=== PATIENT | female | born 1975 | race Caucasian/White ===

== ENCOUNTER 2018-01-27 20:06 | Emergency (ER) | payer BC, OTHER ==
[~2018-01-27] VITALS: Ht 180.3 cm; Wt 122.1 kg
[~2018-01-27 20:06] MED LIST: AGM875 PO; LRT5 PO; MULT-506 PO; OXYC-57 PO; PRED20TA PO
[2018-01-27 20:09] VITALS: TEMP 36.5; Ht 180.3 cm; Wt 122.1 kg
[2018-01-27] MEDS ORDERED: SODIUM CHLORIDE 0.9% 1000ML 1,000 ML IV STA (20:29)
[2018-01-27] MEDS ORDERED: ONDANSETRON INJ 2 MG/ML 2 ML VIAL IV STA (20:29)
[2018-01-27] MEDS ORDERED: KETOROLAC TROMETHAMINE 30 MG/ML VIAL IV STA (20:29)
[2018-01-27 20:46] LABS: BASO % 0.5 %; BASO ABS # 0.05 K/uL (0-0.2); EOS % 2.5 %; EOS ABS # 0.25 K/uL (0-0.5); HEMATOCRIT 38.1 % (37-47); HEMOGLOBIN 12.6 g/dL (12.0-16.0); IG# 0.03 K/uL (0.00-0.02); LYMPH % 30.9 %; LYMPH ABS # 3.03 K/uL (1.2-3.4); MEAN CELL VOLUME 83.7 fL (80-100); MEAN CORPUSCULAR HEMOGLOBIN 27.7 pg (25-34); MEAN CORPUSCULAR HGB CONC 33.1 g/dl (32-36); MEAN PLATELET VOLUME 9.4 fL (7.4-10.4); MONO % 7.1 %; NEUT % 58.7 %; NEUT ABS # 5.75 K/uL (1.4-6.5); PLATELET COUNT 396 K/uL (130-400); RED CELL DISTRIBUTION WIDTH CV 13.6 % (11.5-14.5); RED CELL DISTRIBUTION WIDTH SD 41.5 fL (36.4-46.3); WHITE BLOOD COUNT 9.81 K/uL (4.8-10.8)
[2018-01-27 21:11] LABS: ALBUMIN 3.8 gm/dl (3.4-5.0); CALCIUM 8.5 mg/dl (8.5-10.1); CREATININE 0.91 mg/dl (0.60-1.20); POTASSIUM 3.5 mmol/L (3.5-5.1); TOTAL PROTEIN 7.7 gm/dl (6.4-8.2)
--- NOTE | 2018-01-27 22:35 | DIAGNOSTIC IMAGING REPORT ---
GALLBLADDER-ABD LIMITED CLINICAL HISTORY: 42 years-old Female presenting with ruq abd pain . TECHNIQUE: Real-time grayscale and limited color Doppler ultrasound imaging of the abdomen limited to the right upper quadrant was performed. COMPARISON: CT from 06/27/2007. FINDINGS: Pancreas: Visualized portions of the pancreatic head and body normal. Liver: Mildly hyperechogenic parenchyma, although the right hemidiaphragm remains visible, likely indicating mild steatosis. The liver measures 17.2 cm in maximal sagittal dimension. No sonographic evidence of hepatic mass. Main portal vein patent with normal directional flow. Biliary: No intrahepatic biliary ductal dilatation. Common bile duct measures up to 6 mm in diameter. Gallbladder: No evidence of gallstones, gallbladder wall thickening, gallbladder distention, or pericholecystic fluid or inflammatory change. Sonographic Ferguson's sign negative. Right kidney: Normal in appearance without evidence of hydronephrosis. Ascites: None. Other: None. IMPRESSION: 1. No cholelithiasis or biliary ductal dilatation. 2. Hepatic steatosis. Correlate with liver function tests to exclude steatohepatitis as a cause for abdominal pain. Electronically signed by: Fabiano Carmichael M.D. 01/27/2018 10:33 PM Dictated Date/Time: 01/27/2018 10:32 PM
[2018-01-27 23:32] VITALS: BP 125/72; PULSE 55; O2SAT 99
--- NOTE | 2018-01-28 01:05 | EMERGENCY ROOM VISIT NOTE ---
History Report prepared by Deloris: Hali Ring Under the Supervision of: Dr. Willy Bocanegra D.O. First contact with patient: 20:20 Chief Complaint: ABDOMINAL PAIN Stated Complaint: RUQ PAIN History of Present Illness The patient is a 42 year old female who presents to the Emergency Room with complaints of constant right sided pain beginning yesterday evening. She describes the pain as burning and cramping, and notes she has had dull right- sided pain for a short time, but began having much more pain last night after dinner. The patient reports the pain was dull again this morning, and became much worse after eating. She notes both of those meals were high in fat. The patient states her LMP was 2.5 weeks ago. She denies abdominal pain, vaginal pain or discharge, CP, SOB. No cough or runny nose. Source of History: patient Onset: yesterday evening Position: other (R side) Quality: burning, cramping Modifying Factors (Worsening): eating Associated Symptoms: No chest pain, No SOB, No abdominal pain Note: Denies: vaginal pain or discharge Review of Systems See HPI for pertinent positives & negatives. A total of 10 systems reviewed and were otherwise negative. Past Medical & Surgical Medical Problems: (1) Asthma (2) Bronchitis (3) Pneumonia Abdominal pain Family History FHx: cancer FHx: diabetes mellitus FHx: gallbladder disease FHx: heart disease FHx: hypertension FHx: lung disease Social History Smoking Status: Never Smoker Smokeless Tobacco Use: No Alcohol Use: occasionally Marital Status: Housing Status: lives with significant other Occupation Status: employed Current/Historical Medications No Active Prescriptions or Reported Meds Allergies Coded Allergies: Fentanyl (Verified Allergy, Severe, ANAPHYLAXIS, 01/27/18) Aminoglycosides (Verified Allergy, Unknown, Y, 05/01/12) Bacitracin (Verified Allergy, Unknown, 05/01/12) Zuleta Pepper (Verified Allergy, Unknown, ALLERGY TO GREEN PEPPER, 05/01/12) Lidocaine (Verified Allergy, Unknown, Y, 07/29/09) Neomycin (Verified Allergy, Unknown, Y, 07/29/09) Polymyxin B (Verified Allergy, Unknown, Y, 07/29/09) Physical Exam Vital Signs Date Time Temp Pulse Resp B/P (MAP) Pulse Ox O2 Delivery O2 Flow Rate FiO2 01/27/18 23:32 55 16 125/72 99 Room Air 01/27/18 22:20 57 18 114/71 100 Room Air 01/27/18 20:09 36.5 85 18 164/91 99 Room Air Physical Exam GENERAL: Sitting up in bed, alert, well appearing, well nourished, in moderate distress, non-toxic, holding RUQ. EYE EXAM: normal conjunctiva. OROPHARYNX: no exudate, no erythema, lips, buccal mucosa, and tongue normal and mucous membranes are moist NECK: supple, no nuchal rigidity, no adenopathy, non-tender LUNGS: Clear to auscultation. Normal chest wall mechanics HEART: no murmurs, S1 normal and S2 normal ABDOMEN: abdomen soft, normo-active bowel sounds, no masses, no rebound or guarding. Tenderness in RUQ. BACK: Back is symmetrical on inspection and there is no deformity, no midline tenderness, no CVA tenderness. SKIN: no rashes and no bruising UPPER EXTREMITIES: upper extremities are grossly normal. LOWER EXTREMITIES: No pitting edema. NEURO EXAM: Normal sensorium, cranial nerves II-XII grossly intact, normal speech, no gross weakness of arms, no gross weakness of legs. Medical Decision & Procedures ER Provider Diagnostic Interpretation: Radiology results as stated below per my review and the radiologist's interpretation: GALLBLADDER-ABD LIMITED CLINICAL HISTORY: 42 years-old Female presenting with ruq abd pain . TECHNIQUE: Real-time grayscale and limited color Doppler ultrasound imaging of the abdomen limited to the right upper quadrant was performed. COMPARISON: CT from 06/27/2007. FINDINGS: Pancreas: Visualized portions of the pancreatic head and body normal. Liver: Mildly hyperechogenic parenchyma, although the right hemidiaphragm remains visible, likely indicating mild steatosis. The liver measures 17.2 cm in maximal sagittal dimension. No sonographic evidence of hepatic mass. Main portal vein patent with normal directional flow. Biliary: No intrahepatic biliary ductal dilatation. Common bile duct measures up to 6 mm in diameter. Gallbladder: No evidence of gallstones, gallbladder wall thickening, gallbladder distention, or pericholecystic fluid or inflammatory change. Sonographic Ferguson's sign negative. Right kidney: Normal in appearance without evidence of hydronephrosis. Ascites: None. Other: None. IMPRESSION: 1. No cholelithiasis or biliary ductal dilatation. 2. Hepatic steatosis. Correlate with liver function tests to exclude steatohepatitis as a cause for abdominal pain. Electronically signed by: Fabiano Carmichael M.D. 01/27/2018 10:33 PM Dictated Date/Time: 01/27/2018 10:32 PM Laboratory Results 01/27/18 20:35 Red Blood Count 4.55, Mean Corpuscular Volume 83.7, Mean Corpuscular Hemoglobin 27.7, Mean Corpuscular Hemoglobin Concent 33.1, Mean Platelet Volume 9.4, Neutrophils (%) (Auto) 58.7, Lymphocytes (%) (Auto) 30.9, Monocytes (%) (Auto) 7.1, Eosinophils (%) (Auto) 2.5, Basophils (%) (Auto) 0.5, Neutrophils # (Auto) 5.75, Lymphocytes # (Auto) 3.03, Monocytes # (Auto) 0.70, Eosinophils # (Auto) 0.25, Basophils # (Auto) 0.05 01/27/18 20:35 Test 01/27/18 20:35 01/27/18 21:00 White Blood Count 9.81 K/uL (4.8-10.8) Red Blood Count 4.55 M/uL (4.2-5.4) Hemoglobin 12.6 g/dL (12.0-16.0) Hematocrit 38.1 % (37-47) Mean Corpuscular Volume 83.7 fL (80-100) Mean Corpuscular Hemoglobin 27.7 pg (25-34) Mean Corpuscular Hemoglobin Concent 33.1 g/dl (32-36) Platelet Count 396 K/uL (130-400) Mean Platelet Volume 9.4 fL (7.4-10.4) Neutrophils (%) (Auto) 58.7 % Lymphocytes (%) (Auto) 30.9 % Monocytes (%) (Auto) 7.1 % Eosinophils (%) (Auto) 2.5 % Basophils (%) (Auto) 0.5 % Neutrophils # (Auto) 5.75 K/uL (1.4-6.5) Lymphocytes # (Auto) 3.03 K/uL (1.2-3.4) Monocytes # (Auto) 0.70 K/uL (0.11-0.59) Eosinophils # (Auto) 0.25 K/uL (0-0.5) Basophils # (Auto) 0.05 K/uL (0-0.2) RDW Standard Deviation 41.5 fL (36.4-46.3) RDW Coefficient of Variation 13.6 % (11.5-14.5) Immature Granulocyte % (Auto) 0.3 % Immature Granulocyte # (Auto) 0.03 K/uL (0.00-0.02) Anion Gap 8.0 mmol/L (3-11) Est Creatinine Clear Calc Drug Dose 113.7 ml/min Estimated GFR () 88.9 Estimated GFR (Non- 76.7 BUN/Creatinine Ratio 12.8 (10-20) Calcium Level 8.5 mg/dl (8.5-10.1) Total Bilirubin 0.7 mg/dl (0.2-1) Direct Bilirubin 0.2 mg/dl (0-0.2) Aspartate Amino Transf (AST/SGOT) 23 U/L (15-37) Alanine Aminotransferase (ALT/SGPT) 35 U/L (12-78) Alkaline Phosphatase 89 U/L (45-117) Total Protein 7.7 gm/dl (6.4-8.2) Albumin 3.8 gm/dl (3.4-5.0) Lipase 116 U/L (73-393) Urine Color DK YELLOW Urine Appearance CLOUDY (CLEAR) Urine pH 5.0 (4.5-7.5) Urine Specific Berry 1.031 (1.000-1.030) Urine Protein NEG (NEG) Urine Glucose (UA) NEG (NEG) Urine Ketones TRACE (NEG) Urine Occult Blood NEG (NEG) Urine Nitrite NEG (NEG) Urine Bilirubin NEG (NEG) Urine Urobilinogen NEG (NEG) Urine Leukocyte Esterase TRACE (NEG) Urine WBC (Auto) 5-10 /hpf (0-5) Urine RBC (Auto) 10-30 /hpf (0-4) Urine Hyaline Casts (Auto) 1-5 /lpf (0-5) Urine Epithelial Cells (Auto) >30 /lpf (0-5) Urine Bacteria (Auto) NEG (NEG) Urine Test NEG (NEG) Laboratory results per my review. Medications Administered Medications (Trade) Dose Ordered Sig/Maria Elena Route Start Time Stop Time Status Last Admin Dose Admin Sodium Chloride 1,000 ml @ 999 mls/hr Q1H1M STAT IV 01/27/18 20:29 01/27/18 21:29 DC 8/6/18 21:49 999 MLS/HR ED Course ED COURSE: Vital signs were reviewed and showed situational hypertension. The patients medical record was reviewed The above diagnostic studies were performed and reviewed. ED treatments and interventions as stated above. 2020: The patient was evaluated in room B12B. A complete history and physical examination was performed. 2028: Ordered Toradol Inj 30 mg IV, Zofran 4 mg IV, Sodium Chloride 1000 ml @ 999 mls/hr IV 1: Upon reevaluation, the patient is resting. I discussed my findings with the patient and she understands and agrees with the treatment plan. Based on the patients age, coexisting illnesses, exam and lab findings the decision to treat as an outpatient was made. The patient remained stable while under my care. The patient appeared well at the time of discharge. Medical Decision Differential diagnoses includes but is not limited to gastritis, peptic ulcer disease, GERD, gallbladder disease, pancreatitis, small bowel obstruction, acute coronary syndrome, pericarditis, ischemic bowel, irritable bowel disease, irritable bowel syndrome, appendicitis, diverticulitis, malignancy, hernia, urinary tract infection, torsion, /ectopic , perforation, trauma, infectious. Patient is a 42-year-old female who presents to ER for right upper quadrant pain is worse after eating in the past 2 days. She is especially worse after fatty foods. Labs were obtained and CBC along with BMP, LFTs, bilirubin lipase is unremarkable. UA was contaminated. was negative. Ultrasound right upper quadrant showed no cholelithiasis. Patient was given fluids but declined pain medications. She was monitored closely. Her exam was fairly unremarkable. She was updated and discharged to follow-up with PCP as an outpatient. She had no chest pain or shortness of breath. Nothing to suggest that this was pulmonary or cardiac in origin. Discussed with Pt concerning signs and symptoms to watch out for. Pt was instructed to follow up with their PCP and discussed with the patient their option to return to the ED at anytime for persistent or worsening symptoms. The appropriate anticipatory guidance and out-patient management, including indications for return to the emergency department, were explained at length to the patient and understood. Medication Reconcilliation Current Medication List: was personally reviewed by me Blood Pressure Screening Patient's blood pressure: Elevated blood pressure Blood pressure disposition: Elevated BP felt to be situational Impression Primary Impression: Abdominal pain Scribe Attestation The scribe's documentation has been prepared under my direction and personally reviewed by me in its entirety. I confirm that the note above accurately reflects all work, treatment, procedures, and medical decision making performed by me. Departure Information Dispostion Home / Self-Care Prescriptions No Active Prescriptions or Reported Meds Referrals No Doctor, Assigned (PCP) Forms Call Back Authorization, HOME CARE DOCUMENTATION FORM, IMPORTANT VISIT INFORMATION Patient Instructions My [facility] Additional Instructions Please follow up with your primary care doctor with in the next 24 hours. Any worsening of your symptoms, please return to the ED immediately. This includes any fevers greater than 100.4, worsening pain, chest pain, shortness breath, persistent nausea, vomiting, unable to eat or drink, or any other concerning signs or symptoms from your standpoint. Please take Tylenol or Motrin as needed for pain. Please try to stay away from fatty foods. Problem Qualifiers Primary Impression: Abdominal pain Abdominal location: right upper quadrant Qualified Codes: R10.11 - Right upper quadrant pain
== END 2018-01-27 23:38 | disposition home or self-care (01) ==
LOC: C.EDB 20:07
DX: R10.11 Right upper quadrant pain (principal); J45.909 Unspecified asthma, uncomplicated; Z87.01 Personal history of pneumonia (recurrent); Z80.9 Family history of malignant neoplasm, unspecified; Z83.3 Family history of diabetes mellitus; Z83.79 Family history of other diseases of the digestive system; Z83.6 Family history of other diseases of the respiratory system; Z82.49 Family history of ischemic heart disease and other diseases of the circulatory system; Z88.8 Allergy status to other drugs, medicaments and biological substances; Z91.018 Allergy to other foods

== ENCOUNTER 2020-11-29 10:22 | Inpatient (IN) ==
[2020-11-29] MEDS ORDERED: ONDANSETRON INJ 2 MG/ML 2 ML VIAL IV STA (10:34)
[2020-11-29] MEDS ORDERED: KETOROLAC TROMETHAMINE 15 MG/ML VIAL IV STA (10:34)
[2020-11-29] MEDS ORDERED: SODIUM CHLORIDE 0.9% 1000ML 1,000 ML IV ONE (10:34)
--- NOTE | 2020-11-29 11:08 | Emergency Department Note ---
History of Present Illness General Chief Complaint: Abdominal Pain Stated Complaint: UPPER ABD PAIN RADIATING TO RIGHT AND INTO SHOULDE Time Seen by Provider: 11/29/20 10:34 History of Present Illness Provider Complaint: abdominal pain Onset (ago): 2 hour(s) Pain Consistency: constant Location: RUQ Radiation: back Severity: moderate Maximum Pain Intensity: 8 Current Pain Intensity: 8 Quality: + stabbing Relieved By: + nothing Exacerbated By: + nothing Context: + history of similar episodes (history of gallstones) Associated Symptoms: + nausea, + vomiting and + back pain; no diarrhea, no fev er, no constipation, no dysuria, no hematemesis, no hematochezia, no melena, no hematuria, no headache, no neck pain, no chest pain and no breathing difficulty Patient states she was recently in [place] and diagnosed with gallstones. She states she saw her PCP yesterday Dr. Trujillo at [facility]. She states she has an appointment with general surgery Dr. Barba on . Related Data Patient Confirmed : No Home Medications Medication Instructions Recorded Confirmed Type fluocinonide 0.05 ml TOPICAL DAILY PRN 11/29/20 11/29/20 History Allergies Allergy/AdvReac Type Severity Reaction Status Date / Time fentanyl Allergy Severe ANAPHYLAXIS Verified 11/29/20 13:32 Aminoglycosides Allergy Unknown Y Verified 11/29/20 13:32 bacitracin Allergy Unknown Verified 11/29/20 13:32 lidocaine Allergy Unknown Y Verified 11/29/20 13:32 neomycin Allergy Unknown Y Verified 11/29/20 13:32 polymyxin B Allergy Unknown Y Verified 11/29/20 13:32 Zuleta Pepper Allergy Unknown ALLERGY TO Uncoded 11/29/20 13:32 GREEN PEPPER Past Med/Surg History Medical History Gallstones History of hysteroscopy Psoriasis Surgical History History of breast biopsy History of colonoscopy History of discectomy microdiscectomy l3-l5 History of sinus surgery Family History Mother Cholecystitis, Onset Age: 37 Breast cancer Father Prostate cancer Pancreatitis Social History Smoking Status: Never smoker Second Hand Exposure: No; Hx Alcohol Use: Yes Alcohol type: wine and hard liquor Hx Substance Use: No Preferred Language: Albanian Communication Ability: Effective Fabrication Welder Required: No Beliefs That Will Affect Care: None marital status: Current Living Situation: Spouse current occupational status: employed Feels Safe at Home: Yes Assistive Devices: Contacts and Glasses Review of Systems A total of 10 systems reviewed and were otherwise negative Physical Exam Vital Signs: Vital Signs - 24 hr 11/29/20 10:28 11/29/20 11:23 11/29/20 12:20 Temperature 36.6 C Temperature Source Temporal Artery Sc an Pulse Rate 72 58 L Pulse Rate [Right Finger] 64 53 L Pulse Rate from Sp O2 Sensor 58 L Pulse Rhythm [Righ t Finger] Regular Regular Pulse Strength [Ri ght Finger] Normal Normal Respiratory Rate 18 16 15 Respiratory Effort / Characteristics Non-Labored Sponta neous Non-Labored Sponta neous Respiratory Depth Normal Normal Respiratory Patter n Regular Regular Blood Pressure 175/80 H 109/72 Blood Pressure [Ri ght Arm] 142/87 H 109/72 Blood Pressure Vibha n 111 84 Blood Pressure Vibha n [Right Arm] 105 84 Blood Pressure Pos ition [Right Arm] Lying Lying Pulse Oximetry 100 99 96 Oxygen Delivery Me thod Room Air Room Air Room Air Sepsis Recent Feve r Within 48 Hours No Sepsis New/Unexpla ined Change in Men ana Status N/A Sepsis Action Take n by Nursing No Action Required Physical Exam: Physical Exam GENERAL: She is oriented to person, place, and time. She appears well-developed and well-nourished. She does not appear distressed. HENT: Exam performed. -Head: Normocephalic and atraumatic. -Right Ear: External ear normal. No mastoid tenderness. -Left Ear: External ear normal. No mastoid tenderness. -Mouth/Throat: The oropharynx is clear and moist. No trismus in the jaw. No dental abscesses or uvula swelling. No oropharyngeal exudate or tonsillar abscesses. EYES: Conjunctivae and EOM are normal. Pupils are equal, round, and reactive to light. Right eye exhibits no discharge. Left eye exhibits no discharge. No scleral icterus. NECK: Normal range of motion. Neck supple. No JVD present. No spinous process tenderness present. No carotid bruit present. No rigidity. No tracheal deviation and normal range of motion present. No Brudzinski's sign and no Kernig's sign noted. CV: Normal rate, regular rhythm, normal heart sounds and intact distal pulses. There is no peripheral edema. Palpable radial pulses bue. PULM/CHEST: Effort normal and breath sounds normal. No respiratory distress. No stridor. She has no wheezes. She has no rales. -Chest Wall: She exhibits no tenderness. ABD: The abdomen is soft. Bowel sounds are normal. She has no distension. No mass is present. There is tenderness to palpation of the right upper quadrant. There is no rebound, no guarding, and no tenderness at McBurney's point. Rovsig negative MUSC/SKEL: Normal range of motion. There is no peripheral edema, tenderness or deformity. LYMPH: No cervical adenopathy. NEURO: She is alert and oriented to person, place, and time. She has normal strength. No cranial nerve deficit or sensory deficit. Coordination and gait normal. GCS eye subscore is 4. GCS verbal subscore is 5. GCS motor subscore is 6. Cerebellar tests wnl. SKIN: Skin is warm and dry. She is not diaphoretic. PSYCH: She has a normal mood and affect. Behavior is normal. Judgment and thought content normal. Course Course 1034: The patient was evaluated in room B7. A complete history and physical exam was performed Cardiac monitoring: An order was placed for continuous cardiac monitoring. The monitor shows a rate of 70 with sinus rhythm Administered Medications Lactated Ringer's (Lr) 1,000 mls @ 125 mls/hr IV .Q8H BERTRAND Stop: 12/29/20 15:54 Last Admin: 11/29/20 16:49 Dose: 125 mls/hr Documented by: [id number] Discontinued Medications Hydromorphone HCl (Hydromorphone Inj 1 Mg/Ml Syringe) 1 mg IV NOW STA Stop: 11/29/20 11:17 Last Admin: 11/29/20 11:20 Dose: 1 mg Documented by: [id number] Sodium Chloride (Nss 1000ml) 1,000 mls @ 999 mls/hr IV .Q1H1M ONE Stop: 11/29/20 11:34 Last Infusion: 11/29/20 12:22 Dose: 0 mls/hr Documented by: [id number] Admin: 11/29/20 11:07 Dose: 999 mls/hr Documented by: [id number] Ketorolac Tromethamine (Ketorolac Tromethamine 15 Mg/Ml Vial) 15 mg IV NOW STA Stop: 11/29/20 10:35 Last Admin: 11/29/20 11:09 Dose: 15 mg Documented by: [id number] Ondansetron HCl (Ondansetron Inj 2 Mg/Ml 2 Ml Vial) 4 mg IV NOW STA Stop: 11/29/20 10:35 Last Admin: 11/29/20 11:09 Dose: 4 mg Documented by: [id number] Ondansetron HCl (Ondansetron Inj 2 Mg/Ml 2 Ml Vial) Confirm Administered Dose 4 mg .ROUTE .STK-MED ONE Stop: 11/29/20 13:09 Last Admin: 11/29/20 13:12 Dose: 4 mg Documented by: [id number] Medical Decision Making Laboratory Data Result diagrams: 11/29/20 11:02 11/29/20 11:02 Lab Results 11/29/20 11/29/20 11/29/20 Range/Units 11:02 11:02 11:02 WBC 12.41 H (4.8-10.8) K/uL RBC 4.48 (4.2-5.4) M/uL Hgb 13.1 (12.0-16.0) g/dL Hct 38.2 (37-47) % MCV 85.3 (80-100) fL MCH 29.2 (25-34) pg MCHC 34.3 (32-36) g/dL RDW Std Deviation 42.6 (36.4-46.3) fL RDW Coeff of Onur 13.7 (11.5-14.5) % Plt Count 375 (130-400) K/uL MPV 10.1 (7.4-10.4) fL Immature Gran % (Auto) 0.2 % Neut % (Auto) 82.2 % Lymph % (Auto) 10.5 % [place] % (Auto) 6.3 % Eos % (Auto) 0.6 % Baso % (Auto) 0.2 % Neut # (Auto) 10.21 H (1.4-6.5) K/uL Lymph # (Auto) 1.30 (1.2-3.4) K/uL [place] # (Auto) 0.78 H (0.11-0.59) K/uL Eos # (Auto) 0.07 (0-0.5) K/uL Baso # (Auto) 0.03 (0-0.2) K/uL Immature Gran # (Auto) 0.02 (0.00-0.02) K/uL Sodium 139 (136-145) mmol/L Potassium 4.2 (3.5-5.1) mmol/L Chloride 111 H (98-107) mmol/L Carbon Dioxide 22 (21-32) mmol/L Anion Gap 6.0 (3-11) BUN 13 (7-18) mg/dl Creatinine 0.80 (0.6-1.2) mg/dl Est Cr Clr Drug Dosing 117.4 ml/min Est GFR ( Amer) 102.5 ml/min Est GFR (Non-Af Amer) 88.4 ml/min BUN/Creatinine Ratio 15.7 (10-20) Glucose 86 (70-99) mg/dl Calcium 8.7 (8.5-10.1) mg/dl Total Bilirubin 1.4 H (0.2-1) mg/dl Direct Bilirubin 0.4 H (0-0.2) mg/dl AST 46 H (15-37) U/L ALT 51 (12-78) U/L Alkaline Phosphatase 86 (45-117) U/L Total Protein 7.4 (6.4-8.2) gm/dl Albumin 3.7 (3.4-5.0) gm/dl Lipase 158 (73-393) U/L Urine Color Dark Yellow Urine Appearance Cloudy A (Clear) Urine pH 5.5 (4.5-7.5) Ur Specific [place] 1.025 (1.000-1.030) Urine Protein Negative (Negative) Urine Glucose (UA) Negative (Negative) Urine Ketones Trace H (Negative) Urine Blood Negative (Negative) Urine Nitrite Negative (Negative) Urine Bilirubin Negative (Negative) Urine Urobilinogen Negative (Negative) Ur Leukocyte Esterase 1+ H (Negative) Urine WBC (Auto) 1-5 (0-5) /hpf Urine RBC (Auto) 5-10 H (0-4) /hpf U Hyaline Cast (Auto) 5-10 H (0-5) /lpf U Epithel Cells (Auto) >30 H (0-5) /lpf Urine Bacteria (Auto) Negative (Negative) POC Ur Test (NEG) 11/29/20 Range/Units 11:02 WBC (4.8-10.8) K/uL RBC (4.2-5.4) M/uL Hgb (12.0-16.0) g/dL Hct (37-47) % MCV (80-100) fL MCH (25-34) pg MCHC (32-36) g/dL RDW Std Deviation (36.4-46.3) fL RDW Coeff of Onur (11.5-14.5) % Plt Count (130-400) K/uL MPV (7.4-10.4) fL Immature Gran % (Auto) % Neut % (Auto) % Lymph % (Auto) % [place] % (Auto) % Eos % (Auto) % Baso % (Auto) % Neut # (Auto) (1.4-6.5) K/uL Lymph # (Auto) (1.2-3.4) K/uL [place] # (Auto) (0.11-0.59) K/uL Eos # (Auto) (0-0.5) K/uL Baso # (Auto) (0-0.2) K/uL Immature Gran # (Auto) (0.00-0.02) K/uL Sodium (136-145) mmol/L Potassium (3.5-5.1) mmol/L Chloride (98-107) mmol/L Carbon Dioxide (21-32) mmol/L Anion Gap (3-11) BUN (7-18) mg/dl Creatinine (0.6-1.2) mg/dl Est Cr Clr Drug Dosing ml/min Est GFR ( Amer) ml/min Est GFR (Non-Af Amer) ml/min BUN/Creatinine Ratio (10-20) Glucose (70-99) mg/dl Calcium (8.5-10.1) mg/dl Total Bilirubin (0.2-1) mg/dl Direct Bilirubin (0-0.2) mg/dl AST (15-37) U/L ALT (12-78) U/L Alkaline Phosphatase (45-117) U/L Total Protein (6.4-8.2) gm/dl Albumin (3.4-5.0) gm/dl Lipase (73-393) U/L Urine Color Urine Appearance (Clear) Urine pH (4.5-7.5) Ur Specific [place] (1.000-1.030) Urine Protein (Negative) Urine Glucose (UA) (Negative) Urine Ketones (Negative) Urine Blood (Negative) Urine Nitrite (Negative) Urine Bilirubin (Negative) Urine Urobilinogen (Negative) Ur Leukocyte Esterase (Negative) Urine WBC (Auto) (0-5) /hpf Urine RBC (Auto) (0-4) /hpf U Hyaline Cast (Auto) (0-5) /lpf U Epithel Cells (Auto) (0-5) /lpf Urine Bacteria (Auto) (Negative) POC Ur Test NEG (NEG) Imaging Data Radiologist's Impression: Chest/Abdomen X-ray 11/29/20 10:35 XR abdomen 2V w PA chest HISTORY: 44 years-old Female epigastric pain . Epigastric abdominal pain with nausea COMPARISON: Right upper quadrant abdominal ultrasound of same day TECHNIQUE: PA view of the chest with erect and supine views of the abdomen FINDINGS: Cardiac mediastinal and hilar silhouettes are within normal limits. No pneumothorax, pleural effusion, airspace consolidation or overt pulmonary edema. Bones of the chest appear grossly intact. No pneumatosis or pneumoperitoneum. Bowel gas pattern is nonobstructive. No urolith or acute fracture. IMPRESSION: Unremarkable acute abdominal series radiographs. ACT 112: Negative or not required by law. The above report was generated using voice recognition software. It may contain grammatical, syntax or spelling errors. Electronically signed by: Valdez Rebollar M.D. 11/29/2020 1:04 PM Gallbladder Ultrasound 11/29/20 10:35 US gallbladder HISTORY: 44 years-old Female carlos acute right upper quadrant abdominal pain COMPARISON: Right upper quadrant abdominal ultrasound 01/27/2018 TECHNIQUE: Multiple real-time sonographic images of the abdominal right upper quadrant were obtained assessing grayscale appearance and color flow FINDINGS: The visualized pancreas appears unremarkable. Common bile duct is dilated measuring up to 1.2 cm. Slightly echogenic morphology of the liver. Mild distention of the gallbladder with shadowing cholelithiasis. No definite gallbladder wall thickening or pericholecystic fluid. Sonographic Ferguson sign reported as positive. Imaged right kidney is unremarkable without hydronephrosis. IMPRESSION: 1. Mild gallbladder distention with cholelithiasis. The sonographic Ferguson sign was reported as positive, however no gallbladder wall thickening or pericholecystic fluid identified to suggest acute cholecystitis. 2. Dilation of the common bile duct. Correlate with serum bilirubin to exclude obstructive etiology. ACT 112: Negative or not required by law. The above report was generated using voice recognition software. It may contain grammatical, syntax or spelling errors. Electronically signed by: Valdez Rebollar M.D. 11/29/2020 12:03 PM ECG Data Indication: abdominal pain Rate (beats per minute): 46 Rhythm: normal sinus Findings: + 1st degree AV block; no ST depression, no ST elevation and no prolonged QT MDM Narrative Vital signs stable. Patient's pain is controlled with multiple rounds of analgesia. Labs show leukocytosis of 12.4.Total bilirubin 1.4 direct bilirubin 0.4 AST 46 ALT 51. Ultrasound does show gallstones with a positive sonographic Ferguson sign. Given the patient's elevated bilirubin level as well as her sonographic Ferguson sign, the patient be admitted to the [facility] team. I did discuss case with Abby knight PA-C for Dr. Mckeon who requests that Dr. Mancia on-call general surgery be paged and notified of the patient. Dr. Mancia is in the OR but was made aware of the patient. Impression & Plan Gallstones Discharge Plan Visit Data Chief Complaint: Abdominal Pain Stated Complaint: UPPER ABD PAIN RADIATING TO RIGHT AND INTO SHOULDE ED Provider: Reinaldo Weber Discharge Problem: Gallstones Patient Disposition: Admitted As Inpatient Discharge Instructions Interventions: ED Discharge Assessment Last Done: 11/29/20 16:08
[2020-11-29 11:15] LABS: Basophils # (auto) 0.03 K/uL (0-0.2); Basophils % (auto) 0.2 %; Eosinophils # (auto) 0.07 K/uL (0-0.5); Eosinophils % (auto) 0.6 %; Hematocrit (blood only) 38.2 % (37-47); Hemoglobin 13.1 g/dL (12.0-16.0); Immature Granulocytes # (auto) 0.02 K/uL (0.00-0.02); Immature Granulocytes % (auto) 0.2 %; Lymphocytes % (auto) 10.5 %; Mean Corpuscular Hemoglobin 29.2 pg (25-34); Mean Corpuscular Hgb Conc 34.3 g/dL (32-36); Mean Corpuscular Volume 85.3 fL (80-100); Mean Platelet Volume 10.1 fL (7.4-10.4); Monocytes # (auto) 0.78 K/uL (0.11-0.59); Monocytes % (auto) 6.3 %; Neutrophils # (auto) 10.21 K/uL (1.4-6.5); Neutrophils % (auto) 82.2 %; Platelet Count 375 K/uL (130-400); RDW Coefficient of Variation 13.7 % (11.5-14.5); RDW Standard Deviation 42.6 fL (36.4-46.3); Red Blood Count 4.48 M/uL (4.2-5.4); White Blood Count 12.41 K/uL (4.8-10.8)
[2020-11-29] MEDS ORDERED: HYDROmorphone INJ 1 MG/ML SYRINGE IV STA (11:16)
[2020-11-29 11:20] LABS: Appearance Urine Cloudy (Clear); Bacteria Urine Automated Negative (Negative); Bilirubin Urine Negative (Negative); Blood Urine Negative (Negative); Color Urine Dark Yellow; Epithelial Cell Urine Auto >30 /lpf (0-5); Glucose Urine UA Negative (Negative); Ketones Urine Trace (Negative); Leukocyte Esterase Urine 1+ (Negative); Nitrite Urine Negative (Negative); Protein Urine Negative (Negative); Specific Gravity Urine 1.025 (1.000-1.030); Urobilinogen Urine Negative (Negative); pH Urine 5.5 (4.5-7.5)
[2020-11-29 11:37] LABS: Albumin Level 3.7 gm/dl (3.4-5.0); BUN Creatinine Ratio 15.7 (10-20); Bilirubin Direct 0.4 mg/dl (0-0.2); Calcium 8.7 mg/dl (8.5-10.1); Creatinine Clr Calc Pharmacy 117.4 ml/min; Est GFR (African American) 102.5 ml/min; Est GFR (Non-African American) 88.4 ml/min; Potassium 4.2 mmol/L (3.5-5.1)
[2020-11-29 11:40] LABS: Bilirubin,Total 1.4 mg/dl (0.2-1); Total Protein 7.4 gm/dl (6.4-8.2)
--- NOTE | 2020-11-29 12:05 | Ultrasound Report ---
US gallbladder HISTORY: 44 years-old Female carlos acute right upper quadrant abdominal pain COMPARISON: Right upper quadrant abdominal ultrasound 01/27/2018 TECHNIQUE: Multiple real-time sonographic images of the abdominal right upper quadrant were obtained assessing grayscale appearance and color flow FINDINGS: The visualized pancreas appears unremarkable. Common bile duct is dilated measuring up to 1.2 cm. Sli ghtly echogenic morphology of the liver. Mild distention of the gallbladder with shadowing cholelithi asis. No definite gallbladder wall thickening or pericholecystic fluid. Sonographic Ferguson sign repor joe as positive. Imaged right kidney is unremarkable without hydronephrosis. IMPRESSION: 1. Mild gallbladder distention with cholelithiasis. The sonographic Ferguson sign was reported as posit emily, however no gallbladder wall thickening or pericholecystic fluid identified to suggest acute chol ecystitis. 2. Dilation of the common bile duct. Correlate with serum bilirubin to exclude obstructive etiology. ACT 112: Negative or not required by law. The above report was generated using voice recognition software. It may contain grammatical, syntax o r spelling errors. Electronically signed by: Valdez Rebollar M.D. 11/29/2020 12:03 PM
--- NOTE | 2020-11-29 13:05 | XRay Report ---
XR abdomen 2V w PA chest HISTORY: 44 years-old Female epigastric pain . Epigastric abdominal pain with nausea COMPARISON: Right upper quadrant abdominal ultrasound of same day TECHNIQUE: PA view of the chest with erect and supine views of the abdomen FINDINGS: Cardiac mediastinal and hilar silhouettes are within normal limits. No pneumothorax, pleural effusion , airspace consolidation or overt pulmonary edema. Bones of the chest appear grossly intact. No pneumatosis or pneumoperitoneum. Bowel gas pattern is nonobstructive. No urolith or acute fracture . IMPRESSION: Unremarkable acute abdominal series radiographs. ACT 112: Negative or not required by law. The above report was generated using voice recognition software. It may contain grammatical, syntax o r spelling errors. Electronically signed by: Valdez Rebollar M.D. 11/29/2020 1:04 PM
[2020-11-29] MEDS ORDERED: ONDANSETRON INJ 2 MG/ML 2 ML VIAL ONE (13:08)
--- NOTE | 2020-11-29 13:35 | History & Physical Report ---
Date of Service November 29, 2020 Assessment & Plan (1) Cholelithiasis: (2) Biliary colic: (3) Leukocytosis: LFTS: Ast 46, ALT 51, Alp Phos 86, T bili 1.4, direct 0.4 admit to med/surg consult general surgery and GI low fat diet, NPO after midnight CXR reviewed, obtain ecg pt without significant pmh, risk factors IVF LR @ 125/hr IV toradol 15mg q6h moderate pain; IV morphine 4mg q6h to be used for severe pain only no indication for antibiotic at this time due to no evidence of cholecystitis repeat CMP, CBC in a.m. Dispo: med surg PCP: Ronnie Full Code DVT ppx: SCD/TEDS for now due to possibility of requiring cholecystectomy Pt was seen and examined in collaboration with Dr. Mckeon, please see addendum History of Present Illness Chief Complaint: Abdominal pain starting @ 8:33a.m. Primary Care Provider: Ladarius Trujillo, DO This is a 44-year-old female with past medical history of psoriasis but otherwise healthy who presents ED secondary to abdominal pain 8:33 a.m. She has had 7 episodes of similar pain in the last 3 months and 4 of which have been in the past month. Her last meal was last evening and she ate tofu marsala. Pain came on abruptly, located RUQ with radiation to R shoulder. When pain comes on it is intense, sharp, 10/10 and resolves on own. Nothing makes the pain better or worse except the IV diluadid in ED. She was recently in [place] from early October until last week and was seen in ED there and told she had gallstones. She saw PCP yesterday who referred her to general surgery. When pain came on abruptly today she presented right to ED. Her mother has hx of cholecystectomy at age 37. She has been trying to maintain a low fat diet. She has otherwise been well and fully vaccinated against covid-19. She denies f/c/s, dizziness, lightheaded, chest pain, sob, uri sx, emesis, diarrhea, constipation, dysuria, increased urg/freq with urination. Appetite has been decreased 2/2 to fear of abdominal pain returning. In ED pt remained hemodynamically stable. She did not meet SIRS/Sepsis criteria. RUQ U/S had a sonographically + murphys sign but no evidence of acute cystitis. Her CBD was noted to be dilated. She has mild gallbladder distention with cholelithiasis. She received IV toradol, dilaudid, zofran and IVF. She is currently feeling better in ED. Allergies Allergy/AdvReac Type Severity Reaction Status Date / Time fentanyl Allergy Severe ANAPHYLAXIS Verified 11/29/20 13:32 Aminoglycosides Allergy Unknown Y Verified 11/29/20 13:32 bacitracin Allergy Unknown Verified 11/29/20 13:32 lidocaine Allergy Unknown Y Verified 11/29/20 13:32 neomycin Allergy Unknown Y Verified 11/29/20 13:32 polymyxin B Allergy Unknown Y Verified 11/29/20 13:32 Zuleta Pepper Allergy Unknown ALLERGY TO Uncoded 11/29/20 13:32 GREEN PEPPER Home Medications Medication Instructions Recorded Confirmed Type fluocinonide 0.05 ml TOPICAL DAILY PRN 11/29/20 11/29/20 History Past Med/Surg History Medical History Gallstones History of hysteroscopy Psoriasis Surgical History History of breast biopsy History of colonoscopy History of discectomy microdiscectomy l3-l5 History of sinus surgery Family History Mother Cholecystitis, Onset Age: 37 Breast cancer Father Prostate cancer Pancreatitis Social History Smoking Status: Never smoker Second Hand Exposure: No; Hx Alcohol Use: Yes Alcohol type: wine and hard liquor Hx Substance Use: No Preferred Language: Divehi Communication Ability: Effective Boiler Washer Required: No Beliefs That Will Affect Care: None marital status: Current Living Situation: Spouse current occupational status: employed Feels Safe at Home: Yes Assistive Devices: Contacts and Glasses Review of Systems Review of Systems: All systems reviewed & are unremarkable except as noted in HPI & below Physical Exam Physical Exam: Constitutional: WD/WN, vitals as above, NAD, sitting up in bed, pleasant, conversing easily Head: Normocephalic, Atraumatic Eyes: PERRL, conjunctivae normal, anicteric sclerae ENMT: external ear and nose normal, oropharynx normal Neck: trachea midline, no thyromegaly normal visual inspection Respiratory: normal respiratory effort, lungs clear to auscultation, no wheeze, rales, rhonchi. Normal insp/exp effort, no accessory muscle use Cardiovascular: RRR, no murmur, no edema Vessels: no JVD or carotid bruit Chest: normal inspection of chest Abdomen: normal bowel sounds, soft, nontender, no hepatosplenomegaly Musculoskeletal: no cyanosis or clubbing, extremities motor strength 5/5 Skin: no rashes, warm and dry normal turgor Neurologic: PERRL, EOMI, accommodation nl, no face palsy, no dysarthria CN's II-XI intact bilaterally and moves all extremities Psychiatric: A+Ox3, euthymic affect Lymphatic: no cervical or axillary lymphadenopathy : deferred Results & Data Results & Data ([place]) Vital Signs (Past 12 Hours) Vital Signs Temp Pulse Pulse Resp BP BP Pulse Ox 11/29/20 13:02 53 L 24 122/73 95 11/29/20 12:20 58 L 53 L 15 109/72 109/72 96 11/29/20 11:23 64 16 142/87 H 99 11/29/20 10:28 36.6 C 72 18 175/80 H 100 Diagnostic Findings Chest/Abdomen X-ray 11/29/20 10:35 XR abdomen 2V w PA chest HISTORY: 44 years-old Female epigastric pain . Epigastric abdominal pain with nausea COMPARISON: Right upper quadrant abdominal ultrasound of same day TECHNIQUE: PA view of the chest with erect and supine views of the abdomen FINDINGS: Cardiac mediastinal and hilar silhouettes are within normal limits. No pneumothorax, pleural effusion, airspace consolidation or overt pulmonary edema. Bones of the chest appear grossly intact. No pneumatosis or pneumoperitoneum. Bowel gas pattern is nonobstructive. No urolith or acute fracture. IMPRESSION: Unremarkable acute abdominal series radiographs. ACT 112: Negative or not required by law. The above report was generated using voice recognition software. It may contain grammatical, syntax or spelling errors. Electronically signed by: Valdez Rebollar M.D. 11/29/2020 1:04 PM Gallbladder Ultrasound 11/29/20 10:35 US gallbladder HISTORY: 44 years-old Female carlos acute right upper quadrant abdominal pain COMPARISON: Right upper quadrant abdominal ultrasound 01/27/2018 TECHNIQUE: Multiple real-time sonographic images of the abdominal right upper quadrant were obtained assessing grayscale appearance and color flow FINDINGS: The visualized pancreas appears unremarkable. Common bile duct is dilated measuring up to 1.2 cm. Slightly echogenic morphology of the liver. Mild distention of the gallbladder with shadowing cholelithiasis. No definite gallbladder wall thickening or pericholecystic fluid. Sonographic Ferguson sign reported as positive. Imaged right kidney is unremarkable without hydronephrosis. IMPRESSION: 1. Mild gallbladder distention with cholelithiasis. The sonographic Ferguson sign was reported as positive, however no gallbladder wall thickening or pericholecystic fluid identified to suggest acute cholecystitis. 2. Dilation of the common bile duct. Correlate with serum bilirubin to exclude obstructive etiology. ACT 112: Negative or not required by law. The above report was generated using voice recognition software. It may contain grammatical, syntax or spelling errors. Electronically signed by: Valdez Rebollar M.D. 11/29/2020 12:03 PM Medications Administered Medication List Discontinued Medications Hydromorphone HCl (Hydromorphone Inj 1 Mg/Ml Syringe) 1 mg IV NOW STA Stop: 11/29/20 11:17 Last Admin: 11/29/20 11:20 Dose: 1 mg Documented by: [id number] Sodium Chloride (Nss 1000ml) 1,000 mls @ 999 mls/hr IV .Q1H1M ONE Stop: 11/29/20 11:34 Last Infusion: 11/29/20 12:22 Dose: 0 mls/hr Documented by: [id number] Admin: 11/29/20 11:07 Dose: 999 mls/hr Documented by: [id number] Ketorolac Tromethamine (Ketorolac Tromethamine 15 Mg/Ml Vial) 15 mg IV NOW STA Stop: 11/29/20 10:35 Last Admin: 11/29/20 11:09 Dose: 15 mg Documented by: [id number] Ondansetron HCl (Ondansetron Inj 2 Mg/Ml 2 Ml Vial) 4 mg IV NOW STA Stop: 11/29/20 10:35 Last Admin: 11/29/20 11:09 Dose: 4 mg Documented by: [id number] Ondansetron HCl (Ondansetron Inj 2 Mg/Ml 2 Ml Vial) Confirm Administered Dose 4 mg .ROUTE .STK-MED ONE Stop: 11/29/20 13:09 Last Admin: 11/29/20 13:12 Dose: 4 mg Documented by: [id number] COVID-19 Results Results COVID-19 Adm Lab Results: RBC 4.48 M/uL (4.2-5.4) 11/29/20 WBC 12.41 K/uL (4.8-10.8) H 11/29/20 Hgb 13.1 g/dL (12.0-16.0) 11/29/20 Hct 38.2 % (37-47) 11/29/20 Plt Count 375 K/uL (130-400) 11/29/20 Neutrophils (%) (Auto) 82.2 % 11/29/20 Lymphocytes (%) (Auto) 10.5 % 11/29/20 Monocytes # (Auto) 0.78 K/uL (0.11-0.59) H 11/29/20 Eosinophils # (Auto) 0.07 K/uL (0-0.5) 11/29/20 Immature Granulocyte % (Auto) 0.2 % 11/29/20 Neutrophils # (Auto) 10.21 K/uL (1.4-6.5) H 11/29/20 Lymphocytes # (Auto) 1.30 K/uL (1.2-3.4) 11/29/20 Monocytes # (Auto) 0.78 K/uL (0.11-0.59) H 11/29/20 Eosinophils # (Auto) 0.07 K/uL (0-0.5) 11/29/20 Basophils # (Auto) 0.03 K/uL (0-0.2) 11/29/20 Immature Granulocyte # (Auto) 0.02 K/uL (0.00-0.02) 11/29/20 Na 139 mmol/L (136-145) 11/29/20 K 4.2 mmol/L (3.5-5.1) 11/29/20 Cl 111 mmol/L (98-107) H 11/29/20 CO2 22 mmol/L (21-32) 11/29/20 Anion Gap 6.0 (3-11) 11/29/20 BUN 13 mg/dl (7-18) 11/29/20 Creatinine 0.80 mg/dl (0.6-1.2) 11/29/20 BUN/Creatinine Ratio 15.7 (10-20) 11/29/20 Glucose Level 86 mg/dl (70-99) 11/29/20 Ca 8.7 mg/dl (8.5-10.1) 11/29/20 Total Bilirubin 1.4 mg/dl (0.2-1) H 11/29/20 Direct Bilirubin 0.4 mg/dl (0-0.2) H 11/29/20 AST/SGOT 46 U/L (15-37) H 11/29/20 ALT/SGPT 51 U/L (12-78) 11/29/20 Alkaline Phosphatase 86 U/L (45-117) 11/29/20 Total Protein 7.4 gm/dl (6.4-8.2) 11/29/20 Albumin 3.7 gm/dl (3.4-5.0) 11/29/20 COVID-19 PCR NEGATIVE (Negative) 11/29/20 Code Status & VTE Plan Code Status Full Code VTE Prophylaxis Plan VTE Prophylaxis will be ordered: Yes Supervising Physician Co-Signing Physician Notes I have seen and examined the patient and have discussed the case with the provider above. I agree with the assessment and plan as stated. 44 yo F with no infectious symptoms presents with persistent biliary colic. She has known cholelithiasis, and notably has lost 60 lbs in the last 6 months with effort to do so through diet and exercise. Physical exam reveals a young female in NAD who has some epigastric and RUQ tenderness to palpation but with no guarding or abdominal distension. Heart and lung exam is normal. Very mildly elevated LFTS, Tbili, WBC (12K). GI consulted and planning for EGD/EUS tomorrow. Surgery also consulted. DO Mike
--- NOTE | 2020-11-29 15:10 | Gastrointestinal Consultation ---
Date of Consultation November 29, 2020 Assessment & Plan (1) Biliary colic: (2) Cholelithiasis: (3) Dilated bile duct: Pt is a 44 y/o female presented w epigastric, RUQ abd pain symptoms radiating to back and R shoulders. Pain had occured 4th time in the past month, mostly post prandially. On eval, noted to have elevated LFTs w cholelithiasis and dilated CBD on u/s. Suspect biliary colic w possible choledocholithiasis, and cholecystitis - IVF support - Antibiotic coverage for possible cholecystitis - Keep NPO - Plan for EUS/ERCP by Dr. Blackwell in OR tomorrow 11/30 - Surgery consulted, likely will do tandem EUS/ERCP followed by lap cholecystectomy tomorrow. - Spoke w primary team re: Bradycardia w 1st degree AV block in EKG. Recommend Cardiology eval Supervising Physician Co-Signing Physician Notes I performed a history and physical examination of the patient today, including specifically on physical exam - soft abdomen. I have discussed the patient's management with the advanced practitioner. Please refer to the nurse practitioner's note for the documented findings and plan of care. Likely choledocholithiasis EUS/ERCP tomorrow History of Present Illness Reason for Consultation: Dilated CBD Requesting Physician: Dr. Jennifer Mckeon Attending Physician: Dr. Ramon Blackwell History of Present Illness Pt is a 44 y/o female who presented to ED today w c/o epigastric, RUQ abd pain radiating to back and R shoulder. She had similar episodes of these symptoms 4 times in the last month. Seems to occur few hours after eating. In past occasions it's related to fatty foods such as hamburger, creamy sauced pasta, but last night had tofu marsala. She denies jaundice, chills, CP, SOB. She does have mild nausea. Did have dark loose stools x 3 this AM but no rectal bleeding, no tarry stools. On eval, noted she does have mild leukocytosis, stable blood ct. Chem panel showed mildly elevated LFTs: Tbili 1.4, AST 46, ALT 51, Alk phos 80. Lipase 158. Abd u/s showed cholelithiasis w/ dilated CBD at 1.2cm. Ferguson sign was positive Allergies Allergy/AdvReac Type Severity Reaction Status Date / Time fentanyl Allergy Severe ANAPHYLAXIS Verified 11/29/20 13:32 Aminoglycosides Allergy Unknown Y Verified 11/29/20 13:32 bacitracin Allergy Unknown Verified 11/29/20 13:32 lidocaine Allergy Unknown Y Verified 11/29/20 13:32 neomycin Allergy Unknown Y Verified 11/29/20 13:32 polymyxin B Allergy Unknown Y Verified 11/29/20 13:32 Zuleta Pepper Allergy Unknown ALLERGY TO Uncoded 11/29/20 13:32 GREEN PEPPER Home Medications Medication Instructions Recorded Confirmed Type fluocinonide 0.05 ml TOPICAL DAILY PRN 11/29/20 11/29/20 History Patient History Medical History Gallstones History of hysteroscopy Psoriasis Surgical History History of breast biopsy History of colonoscopy History of discectomy microdiscectomy l3-l5 History of sinus surgery Family History Mother Cholecystitis, Onset Age: 37 Breast cancer Father Prostate cancer Pancreatitis Social History Smoking Status: Never smoker Second Hand Exposure: No; Hx Alcohol Use: Yes Alcohol type: wine and hard liquor Hx Substance Use: No Preferred Language: Slovenian Communication Ability: Effective Stroke Program Coordinator Required: No Beliefs That Will Affect Care: None marital status: Current Living Situation: Spouse current occupational status: employed Feels Safe at Home: Yes Assistive Devices: Contacts and Glasses Review of Systems Review of Systems: All systems reviewed & are unremarkable except as noted in HPI & below Physical Exam Constitutional: WD/WN, vitals as above well groomed, cooperative and comfortable Eyes: PERRL, conjunctivae normal, anicteric sclerae ENMT: external ear and nose normal, oropharynx normal Respiratory: normal respiratory effort, lungs clear to auscultation Cardiovascular: RRR, no murmur, no edema Gastrointestinal (Abdomen): TTP across upper abd Skin: no rashes, warm and dry no jaundice Psychiatric: A+Ox3, euthymic affect Lymphatic: no lymphedema Results & Data ([facility]) Vital Signs (Past 12 Hours) Vital Signs Temp Pulse Pulse Resp BP BP Pulse Ox 11/29/20 14:08 48 L 12 126/78 100 11/29/20 13:02 53 L 24 122/73 95 11/29/20 12:20 58 L 53 L 15 109/72 109/72 96 11/29/20 11:23 64 16 142/87 H 99 11/29/20 10:28 36.6 C 72 18 175/80 H 100
--- NOTE | 2020-11-29 15:15 | Surgery Consultation ---
Date of Consultation November 29, 2020 Assessment & Plan (1) Cholelithiasis: Cholelithiasis with CBD 1.2 cm and bili 1.4. Discussed with GI. Will plan for eventual lap carlos +/- ERCP depending on labs and MRCP. Supervising Physician Co-Signing Physician Notes I personally saw and evaluated the patient with Victoriano Alvarado PA-C and agree with the assessment and plan. 44 yo female with likely choledocholithiasis, biliary colic -US images and results reviewed -Agree with GI consult, await MRCP results -IF MRCP negative will proceed with laparoscopic cholecystectomy tomorrow -If GI planning on ERCP, will plan on laparoscopic cholecystectomy after ERCP -Keep NPO -ABX -Consent obtained, risks discussed including bleeding, infection, bile leak, ductal injury History of Present Illness History of Present Illness 44 y/o female with intermittent RUQ pain approx 7 times in the past few months. Was seen in an ER in [place] and diagnosed with cholelithiasis. She came home for treatment and had an appt scheduled but this morning developed severe pain and came to the ED. Feels a little better after medicated, also ate lunch. Allergies Allergy/AdvReac Type Severity Reaction Status Date / Time fentanyl Allergy Severe ANAPHYLAXIS Verified 11/29/20 13:32 Aminoglycosides Allergy Unknown Y Verified 11/29/20 13:32 bacitracin Allergy Unknown Verified 11/29/20 13:32 lidocaine Allergy Unknown Y Verified 11/29/20 13:32 neomycin Allergy Unknown Y Verified 11/29/20 13:32 polymyxin B Allergy Unknown Y Verified 11/29/20 13:32 Zuleta Pepper Allergy Unknown ALLERGY TO Uncoded 11/29/20 13:32 GREEN PEPPER Home Medications Medication Instructions Recorded Confirmed Type fluocinonide 0.05 ml TOPICAL DAILY PRN 11/29/20 11/29/20 History Patient History Medical History Gallstones History of hysteroscopy Psoriasis Surgical History History of breast biopsy History of colonoscopy History of discectomy microdiscectomy l3-l5 History of sinus surgery Family History Mother Cholecystitis, Onset Age: 37 Breast cancer Father Prostate cancer Pancreatitis Social History Smoking Status: Never smoker Hx Alcohol Use: No Hx Substance Use: No Preferred Language: Persian marital status: Current Living Situation: Spouse current occupational status: employed Feels Safe at Home: Yes Review of Systems Constitutional: no fever and no chills Gastrointestinal: + abdominal pain, + nausea and + vomiting Physical Exam Constitutional: WD/WN, vitals as above Respiratory: normal respiratory effort, lungs clear to auscultation Cardiovascular: Rate/Rhythm: + bradycardic Gastrointestinal (Abdomen): Inspection/Auscultation: abdomen not distended Percussion/Palpation: + abdomen tender (mild RUQ) and abdomen soft Skin: no rashes, warm and dry Results & Data ([facility]) Vital Signs (Past 12 Hours) Vital Signs Temp Pulse Pulse Resp BP BP Pulse Ox 11/29/20 14:08 48 L 12 126/78 100 11/29/20 13:02 53 L 24 122/73 95 11/29/20 12:20 58 L 53 L 15 109/72 109/72 96 11/29/20 11:23 64 16 142/87 H 99 11/29/20 10:28 36.6 C 72 18 175/80 H 100 PG Care Time/CCT Total # of Minutes Spent Total Time Spent with Patient: Total time spent is greater than 50% in coordination of care (as documented) at patient's floor/unit and/or counseling patient: Coding Level of Care Code 53022 Inpt Consult Level 4 Diagnoses Cholelithiasis K80.20
[2020-11-29] MEDS ORDERED: MoRPHine SULFATE 4 MG/ML 1 ML CARP\\VIAL IV PRN (15:55)
[2020-11-29] MEDS ORDERED: POLYETHYLENE (MIRALAX) 17 GM PACK PO PRN (15:55)
[2020-11-29] MEDS ORDERED: MAGNESIUM HYDROXIDE SUSP 30 ML UDC PO PRN (15:55)
[2020-11-29] MEDS ORDERED: ALUMINUM/MAGNESIUM SUSP 30 ML UDC PO PRN (15:55)
[2020-11-29] MEDS: LACTATED RINGER'S 1,000 ML IV SCH (16:49)
[2020-11-29] MEDS: KETOROLAC TROMETHAMINE 15 MG/ML VIAL IV PRN (21:56)
[2020-11-30] MEDS: LACTATED RINGER'S 1,000 ML IV SCH ×3 (00:53→15:40)
[2020-11-30] MEDS: ACETAMINOPHEN 325 MG TAB PO PRN ×2 (00:57→20:27)
--- NOTE | 2020-11-30 06:32 | Electrocardiogram Report ---
Test Reason : Blood Pressure : / mmHG Vent. Rate : 046 BPM Atrial Rate : 046 BPM P-R Int : 214 ms QRS Dur : 092 ms QT Int : 520 ms P-R-T Axes : 055 -09 005 degrees QTc Int : 455 ms Sinus bradycardia with 1st degree A-V block Otherwise normal ECG When compared with ECG of 30-DEC-2004 13:48, ID interval has increased Confirmed by Siddhartha Garber ([id number]) on 11/30/2020 6:31:59 AM Referred By: REFERRED SELF Confirmed By:Siddhartha Garber
[2020-11-30 07:10] LABS: Basophils # (auto) 0.02 K/uL (0-0.2); Basophils % (auto) 0.3 %; Eosinophils % (auto) 1.4 %; Hematocrit (blood only) 33.3 % (37-47); Hemoglobin 11.1 g/dL (12.0-16.0); Lymphocytes # (auto) 1.78 K/uL (1.2-3.4); Lymphocytes % (auto) 24.8 %; Mean Corpuscular Hemoglobin 28.5 pg (25-34); Mean Corpuscular Hgb Conc 33.3 g/dL (32-36); Mean Corpuscular Volume 85.4 fL (80-100); Mean Platelet Volume 10.2 fL (7.4-10.4); Monocytes # (auto) 0.56 K/uL (0.11-0.59); Monocytes % (auto) 7.8 %; Neutrophils # (auto) 4.72 K/uL (1.4-6.5); Neutrophils % (auto) 65.7 %; Platelet Count 277 K/uL (130-400); RDW Coefficient of Variation 13.8 % (11.5-14.5); RDW Standard Deviation 42.6 fL (36.4-46.3); White Blood Count 7.18 K/uL (4.8-10.8)
[2020-11-30] MEDS ORDERED: PIPERACILL/TAZOBAC CONSULT ACTIVE PRN (07:12)
[2020-11-30] MEDS ORDERED: PIPERACILLIN/TAZOBACTAM 4.5 GM in DEXTROSE 5% 100 ML IV ONE (07:30)
[2020-11-30 07:45] LABS: Albumin Level 2.9 gm/dl (3.4-5.0); BUN Creatinine Ratio 13.6 (10-20); Bilirubin,Total 0.8 mg/dl (0.2-1); Calcium 7.2 mg/dl (8.5-10.1); Creatinine Clr Calc Pharmacy 134.1 ml/min; Est GFR (African American) 120.4 ml/min; Est GFR (Non-African American) 103.9 ml/min; Globulin 2.8 gm/dl (2.5-4.0); Magnesium 2.3 mg/dl (1.8-2.4); Potassium 3.9 mmol/L (3.5-5.1); Total Protein 5.7 gm/dl (6.4-8.2)
--- NOTE | 2020-11-30 08:40 | Hospitalist Progress Note ---
Date of Service November 30, 2020 Assessment & Plan (1) Cholelithiasis: (2) Biliary colic: (3) Leukocytosis: LFTS: Ast 46, ALT 51, Alp Phos 86, T bili 1.4, direct 0.4 Gallbladder ultrasound IMPRESSION: 1. Mild gallbladder distention with cholelithiasis. The sonographic Ferguson sign was reported as positive, however no gallbladder wall thickening or pericholecystic fluid identified to suggest acute cholecystitis. 2. Dilation of the common bile duct. Correlate with serum bilirubin to exclude obstructive etiology. admitted to med/surg Consulted general surgery and GI -plan for ERCP EUS (11/30), likely followed by lap carlos low fat diet, NPO after midnight CXR reviewed, obtained ecg pt without significant pmh, risk factors IVF LR @ 125/hr Started IV zosyn IV toradol 15mg q6h moderate pain; IV morphine 4mg q6h to be used for severe pain only repeat CMP, CBC in a.m. Dispo: med surg PCP: Dr. Trujillo Full Code DVT ppx: SCD/TEDS for now due to possibility of requiring cholecystectomy Admission and Anticipated Discharge Date Admission Date: November 29, 2020 Subjective Patient seen in follow-up of cholelithiasis, right upper quadrant pain Currently patient feels better, abdominal pain much better controlled Denies fevers chills, chest pain shortness of breath, nausea or vomiting. She is passing gas Reports she lost a lot of weight recently by exercising regularly Plan for ERCP/EUS by GI, then lap carlos Review of Systems Review of Systems: All systems reviewed & are unremarkable except as noted in HPI & below Constitutional: no fever and no chills Respiratory: no cough and no dyspnea Cardiovascular: no chest pain and no palpitations Gastrointestinal: + abdominal pain (improved); no nausea and no vomiting Physical Exam Physical Exam: Constitutional: WD/WN, vitals as above, NAD, sitting up in bed, pleasant, conversing easily Head: Normocephalic, Atraumatic Eyes: PERRL, conjunctivae normal, anicteric sclerae ENMT: external ear and nose normal, oropharynx normal Neck: normal visual inspection Respiratory: normal respiratory effort, lungs clear to auscultation, no wheeze, rales, rhonchi. Normal insp/exp effort, no accessory muscle use Cardiovascular: RRR, no murmur, no edema Vessels: no JVD or carotid bruit Chest: normal inspection of chest Abdomen: normal bowel sounds, soft, mildly tender to palp. at RUQ Musculoskeletal: extremities motor strength 5/5 Skin: no rashes, warm and dry normal turgor Neurologic: PERRL, EOMI, no face palsy, no dysarthria CN's II-XI intact bilaterally and moves all extremities Psychiatric: A+Ox3, euthymic affect Results & Data Results & Data ([facility]) Vital Signs (Past 12 Hours) Vital Signs Temp Pulse Resp BP Pulse Ox 11/29/20 23:30 36.5 C 60 16 102/69 99 Laboratory Results 11/30/20 11/30/20 11/29/20 Range/Units 06:38 06:38 13:00 WBC 7.18 (4.8-10.8) K/uL RBC 3.90 L (4.2-5.4) M/uL Hgb 11.1 L (12.0-16.0) g/dL Hct 33.3 L (37-47) % MCV 85.4 (80-100) fL MCH 28.5 (25-34) pg MCHC 33.3 (32-36) g/dL RDW Std Deviation 42.6 (36.4-46.3) fL RDW Coeff of Onur 13.8 (11.5-14.5) % Plt Count 277 (130-400) K/uL MPV 10.2 (7.4-10.4) fL Immature Gran % (Auto) 0.0 % Neut % (Auto) 65.7 % Lymph % (Auto) 24.8 % Stearns % (Auto) 7.8 % Eos % (Auto) 1.4 % Baso % (Auto) 0.3 % Neut # (Auto) 4.72 (1.4-6.5) K/uL Lymph # (Auto) 1.78 (1.2-3.4) K/uL Stearns # (Auto) 0.56 (0.11-0.59) K/uL Eos # (Auto) 0.10 (0-0.5) K/uL Baso # (Auto) 0.02 (0-0.2) K/uL Immature Gran # (Auto) 0.00 (0.00-0.02) K/uL Sodium 141 (136-145) mmol/L Potassium 3.9 (3.5-5.1) mmol/L Chloride 112 H (98-107) mmol/L Carbon Dioxide 25 (21-32) mmol/L Anion Gap 4.0 (3-11) BUN 10 (7-18) mg/dl Creatinine 0.70 (0.6-1.2) mg/dl Est Cr Clr Drug Dosing 134.1 ml/min Est GFR ( Amer) 120.4 ml/min Est GFR (Non-Af Amer) 103.9 ml/min BUN/Creatinine Ratio 13.6 (10-20) Glucose 86 (70-99) mg/dl Calcium 7.2 L D (8.5-10.1) mg/dl Magnesium 2.3 (1.8-2.4) mg/dl Total Bilirubin 0.8 D (0.2-1) mg/dl Direct Bilirubin (0-0.2) mg/dl AST 58 H (15-37) U/L ALT 99 H (12-78) U/L Alkaline Phosphatase 66 (45-117) U/L Total Protein 5.7 L D (6.4-8.2) gm/dl Albumin 2.9 L (3.4-5.0) gm/dl Globulin 2.8 (2.5-4.0) gm/dl Albumin/Globulin Ratio 1.0 (0.9-2) Lipase (73-393) U/L Urine Color Urine Appearance (Clear) Urine pH (4.5-7.5) Ur Specific [place] (1.000-1.030) Urine Protein (Negative) Urine Glucose (UA) (Negative) Urine Ketones (Negative) Urine Blood (Negative) Urine Nitrite (Negative) Urine Bilirubin (Negative) Urine Urobilinogen (Negative) Ur Leukocyte Esterase (Negative) Urine WBC (Auto) (0-5) /hpf Urine RBC (Auto) (0-4) /hpf U Hyaline Cast (Auto) (0-5) /lpf U Epithel Cells (Auto) (0-5) /lpf Urine Bacteria (Auto) (Negative) POC Ur Test (NEG) COVID-19 Eval Order SARS-CoV-2 (PCR) NEGATIVE (Negative) 06/08/21 06/08/21 06/08/21 Range/Units 13:00 11:02 11:02 WBC (4.8-10.8) K/uL RBC (4.2-5.4) M/uL Hgb (12.0-16.0) g/dL Hct (37-47) % MCV (80-100) fL MCH (25-34) pg MCHC (32-36) g/dL RDW Std Deviation (36.4-46.3) fL RDW Coeff of Onur (11.5-14.5) % Plt Count (130-400) K/uL MPV (7.4-10.4) fL Immature Gran % (Auto) % Neut % (Auto) % Lymph % (Auto) % Ste[place]s % (Auto) % Eos % (Auto) % Baso % (Auto) % Neut # (Auto) (1.4-6.5) K/uL Lymph # (Auto) (1.2-3.4) K/uL Ste[place]s # (Auto) (0.11-0.59) K/uL Eos # (Auto) (0-0.5) K/uL Baso # (Auto) (0-0.2) K/uL Immature Gran # (Auto) (0.00-0.02) K/uL Sodium (136-145) mmol/L Potassium (3.5-5.1) mmol/L Chloride (98-107) mmol/L Carbon Dioxide (21-32) mmol/L Anion Gap (3-11) BUN (7-18) mg/dl Creatinine (0.6-1.2) mg/dl Est Cr Clr Drug Dosing ml/min Est GFR ( Amer) ml/min Est GFR (Non-Af Amer) ml/min BUN/Creatinine Ratio (10-20) Glucose (70-99) mg/dl Calcium (8.5-10.1) mg/dl Magnesium (1.8-2.4) mg/dl Total Bilirubin (0.2-1) mg/dl Direct Bilirubin (0-0.2) mg/dl AST (15-37) U/L ALT (12-78) U/L Alkaline Phosphatase (45-117) U/L Total Protein (6.4-8.2) gm/dl Albumin (3.4-5.0) gm/dl Globulin (2.5-4.0) gm/dl Albumin/Globulin Ratio (0.9-2) Lipase (73-393) U/L Urine Color Dark Yellow Urine Appearance Cloudy A (Clear) Urine pH 5.5 (4.5-7.5) Ur Specific [place] 1.025 (1.000-1.030) Urine Protein Negative (Negative) Urine Glucose (UA) Negative (Negative) Urine Ketones Trace H (Negative) Urine Blood Negative (Negative) Urine Nitrite Negative (Negative) Urine Bilirubin Negative (Negative) Urine Urobilinogen Negative (Negative) Ur Leukocyte Esterase 1+ H (Negative) Urine WBC (Auto) 1-5 (0-5) /hpf Urine RBC (Auto) 5-10 H (0-4) /hpf U Hyaline Cast (Auto) 5-10 H (0-5) /lpf U Epithel Cells (Auto) >30 H (0-5) /lpf Urine Bacteria (Auto) Negative (Negative) POC Ur Test NEG (NEG) COVID-19 Eval Order Covid19 at [facility] SARS-CoV-2 (PCR) (Negative) 11/29/20 11/29/20 Range/Units 11:02 11:02 WBC 12.41 H (4.8-10.8) K/uL RBC 4.48 (4.2-5.4) M/uL Hgb 13.1 (12.0-16.0) g/dL Hct 38.2 (37-47) % MCV 85.3 (80-100) fL MCH 29.2 (25-34) pg MCHC 34.3 (32-36) g/dL RDW Std Deviation 42.6 (36.4-46.3) fL RDW Coeff of Onur 13.7 (11.5-14.5) % Plt Count 375 (130-400) K/uL MPV 10.1 (7.4-10.4) fL Immature Gran % (Auto) 0.2 % Neut % (Auto) 82.2 % Lymph % (Auto) 10.5 % Stearns % (Auto) 6.3 % Eos % (Auto) 0.6 % Baso % (Auto) 0.2 % Neut # (Auto) 10.21 H (1.4-6.5) K/uL Lymph # (Auto) 1.30 (1.2-3.4) K/uL [place]s # (Auto) 0.78 H (0.11-0.59) K/uL Eos # (Auto) 0.07 (0-0.5) K/uL Baso # (Auto) 0.03 (0-0.2) K/uL Immature Gran # (Auto) 0.02 (0.00-0.02) K/uL Sodium 139 (136-145) mmol/L Potassium 4.2 (3.5-5.1) mmol/L Chloride 111 H (98-107) mmol/L Carbon Dioxide 22 (21-32) mmol/L Anion Gap 6.0 (3-11) BUN 13 (7-18) mg/dl Creatinine 0.80 (0.6-1.2) mg/dl Est Cr Clr Drug Dosing 117.4 ml/min Est GFR ( Amer) 102.5 ml/min Est GFR (Non-Af Amer) 88.4 ml/min BUN/Creatinine Ratio 15.7 (10-20) Glucose 86 (70-99) mg/dl Calcium 8.7 (8.5-10.1) mg/dl Magnesium (1.8-2.4) mg/dl Total Bilirubin 1.4 H (0.2-1) mg/dl Direct Bilirubin 0.4 H (0-0.2) mg/dl AST 46 H (15-37) U/L ALT 51 (12-78) U/L Alkaline Phosphatase 86 (45-117) U/L Total Protein 7.4 (6.4-8.2) gm/dl Albumin 3.7 (3.4-5.0) gm/dl Globulin (2.5-4.0) gm/dl Albumin/Globulin Ratio (0.9-2) Lipase 158 (73-393) U/L Urine Color Urine Appearance (Clear) Urine pH (4.5-7.5) Ur Specific [place] (1.000-1.030) Urine Protein (Negative) Urine Glucose (UA) (Negative) Urine Ketones (Negative) Urine Blood (Negative) Urine Nitrite (Negative) Urine Bilirubin (Negative) Urine Urobilinogen (Negative) Ur Leukocyte Esterase (Negative) Urine WBC (Auto) (0-5) /hpf Urine RBC (Auto) (0-4) /hpf U Hyaline Cast (Auto) (0-5) /lpf U Epithel Cells (Auto) (0-5) /lpf Urine Bacteria (Auto) (Negative) POC Ur Test (NEG) COVID-19 Eval Order SARS-CoV-2 (PCR) (Negative) Medications Administered Current Inpatient Medications Acetaminophen (Acetaminophen 325 Mg Tab) 650 mg PO Q4H PRN PRN Reason: pain/fever Stop: 12/29/20 15:54 Last Admin: 11/30/20 00:57 Dose: 650 mg Documented by: Al Hydrox/Mg Hydrox/Simethicone (Aluminum/Magnesium Susp 30 Ml Udc) 30 ml PO Q6H PRN PRN Reason: Dyspepsia Stop: 12/29/20 15:54 Lactated Ringer's (Lr) 1,000 mls @ 125 mls/hr IV .Q8H BERTRAND Stop: 12/29/20 15:54 Last Admin: 11/30/20 07:54 Dose: 125 mls/hr Documented by: Piperacillin Sod/Tazobactam (Sod 3.375 gm/ Dextrose) 115 mls @ 28.75 mls/hr IV Q8H BERTRAND; Protocol Stop: 12/10/20 11:59 Indomethacin (Indomethacin 50 Mg Supp) 100 mg [place] ONE ONE Stop: 11/30/20 11:03 Ketorolac Tromethamine (Ketorolac Tromethamine 15 Mg/Ml Vial) 15 mg IV Q6H PRN PRN Reason: moderate pain Stop: 12/04/20 15:54 Last Admin: 11/29/20 21:56 Dose: 15 mg Documented by: Magnesium Hydroxide (Magnesium Hydroxide Susp 30 Ml Udc) 30 ml PO Q6H PRN PRN Reason: Constipation Stop: 12/29/20 15:54 Miscellaneous Information (Piperacill/Tazobac Consult Active) 1 ea N/A UD PRN PRN Reason: Consult Stop: 12/30/20 07:11 Morphine Sulfate (Morphine Sulfate 4 Mg/Ml 1 Ml Carp\Vial) 4 mg IV Q6H PRN PRN Reason: severe pain Stop: 12/13/20 15:54 Last Admin: 11/29/20 19:34 Dose: 4 mg Documented by: Ondansetron HCl (Ondansetron Inj 2 Mg/Ml 2 Ml Vial) 4 mg IV Q6H PRN PRN Reason: Nausea Stop: 12/29/20 15:54 Polyethylene Glycol (Polyethylene (Miralax) 17 Gm Pack) 17 gm PO DAILY PRN PRN Reason: Constipation Stop: 12/29/20 15:54
--- NOTE | 2020-11-30 09:44 | Gastroenterology Progress Note ---
Date of Service November 30, 2020 Assessment & Plan (1) Biliary colic: (2) Cholelithiasis: (3) Dilated bile duct: Pt is a 44 y/o female presented w epigastric, RUQ abd pain symptoms radiating to back and R shoulders. Pain had occured 4th time in the past month, mostly post prandially. On eval, noted to have elevated LFTs w cholelithiasis and dilated CBD on u/s. Suspect biliary colic w possible choledocholithiasis, and cholecystitis - IVF support - Antibiotic coverage for possible cholecystitis - Keep NPO for EUS/ERCP by Dr. Blackwell followed by lap cholecystectomy by Surgery in OR today - Trend LFTs after procedures above Admission and Anticipated Discharge Date Admission Date: November 30, 2020 Supervising Physician Co-Signing Physician Notes I performed a history and physical examination of the patient today, including specifically on physical exam - soft abdomen. I have discussed the patient's management with the advanced practitioner. Please refer to the nurse practitioner's note for the documented findings and plan of care. Subjective Pt did well overnight, not having as much abd pain, denies n/v, fever, chills, CP, SOB. Had been NPO for EUS/ERCP, lap carlos planned in OR today Review of Systems Review of Systems: All systems reviewed & are unremarkable except as noted in HPI & below Physical Exam Constitutional: WD/WN, vitals as above well groomed, cooperative and comfortable Eyes: PERRL, conjunctivae normal, anicteric sclerae ENMT: external ear and nose normal, oropharynx normal Respiratory: normal respiratory effort, lungs clear to auscultation Cardiovascular: RRR, no murmur, no edema Gastrointestinal (Abdomen): normal bowel sounds, soft, nontender, no hepatosplenomegaly Skin: no rashes, warm and dry no jaundice Psychiatric: A+Ox3, euthymic affect Lymphatic: no lymphedema Results & Data ([facility]) Vital Signs (Past 12 Hours) Vital Signs Temp Pulse Resp BP BP Pulse Ox 11/30/20 07:58 36.8 C 56 L 16 109/74 98 11/29/20 23:30 36.5 C 60 16 102/69 99
[2020-11-30] MEDS ORDERED: DEXAMETHASONE SOD INJ 4 MG/ML VIAL ONE (10:10)
[2020-11-30] MEDS ORDERED: ONDANSETRON INJ 2 MG/ML 2 ML VIAL ONE (10:10)
[2020-11-30] MEDS ORDERED: PROPOFOL IV EMULSION 10 MG/ML 20 ML VIAL IV ONE (10:10)
[2020-11-30] MEDS ORDERED: MIDAZOLAM HCL 1 MG/ML 2ML VIAL ONE (10:10)
[2020-11-30] MEDS ORDERED: GLYCOPYRROLATE 0.2 MG/ML VIAL ONE ×2 (10:10→13:15)
[2020-11-30] MEDS ORDERED: NEOSTIGMINE METHYLSULFATE 1 MG/ML 10ML VIAL ONE (10:10)
[2020-11-30] MEDS ORDERED: LIDOCAINE 2% 2 ML VIAL/AMP(20MG/ML) INFIL ONE (10:10)
[2020-11-30] MEDS ORDERED: ROCURONIUM BROMIDE 10 MG/ML 5 ML VIAL IV ONE ×2 (10:12→13:09)
[2020-11-30] MEDS ORDERED: SODIUM CHLORIDE 0.9% INJ 10 ML VIAL ONE (10:12)
[2020-11-30] MEDS ORDERED: HYDROmorphone INJ 2 MG/ML SYR/VIAL ONE (10:12)
[2020-11-30] MEDS ORDERED: BUPIVACAINE/EPINEPHRINE 0.5% MPF 1:200,000 30 ML VIAL ONE (10:25)
--- NOTE | 2020-11-30 10:26 | History & Physical Bridge Note ---
Date of Service November 30, 2020 History & Physical Bridge Note I have examined the patient, reviewed the History & Physical and in the interval since the performance of the History & Physical I have noted the following changes of clinical significance: no changes noted EUS/ERCP today. Patient was explained in detail regarding risks, benefits, limitations and alternatives of the above endoscopic procedure. Risks of intravenous sedation used for procedure were also explained. Risks include, but not limited to pe rforation, bleeding, infection, respiratory distress, cardiac arrest and . Patient is also aware about the possibility of missed lesion. Patient's questions were answered. The patient verbalized understanding the information and agreed to undergo the procedure.
--- NOTE | 2020-11-30 10:44 | History & Physical Bridge Note ---
Date of Service November 30, 2020 History & Physical Bridge Note I have examined the patient, reviewed the History & Physical and in the interval since the performance of the History & Physical I have noted the following changes of clinical significance: no changes noted
[2020-11-30] MEDS ORDERED: INDOMETHACIN 50 MG SUPP PR ONE (11:02)
--- NOTE | 2020-11-30 11:16 | Anesthesiology Consultation ---
Date of Service November 30, 2020 Assessment & Plan Chart Review Chart Review: Acceptable Risk for Surgery Consults Requested none History Surgery Operation Date: 11/30/20 08:25 Proposed Procedures p Endoscopic Retrograde Cholangiopancreatogram - Ramon Blackwell MD s Endoscopic Ultrasonography - Ramon Blackwell MD s Laparoscopic Cholecystectomy - Phillip Mancia, DO Height/Weight Height: 5 ft 11 in Weight: 105.3 kg Allergies Allergy/AdvReac Type Severity Reaction Status Date / Time fentanyl Allergy Severe ANAPHYLAXIS Verified 11/29/20 13:32 Aminoglycosides Allergy Unknown Y Verified 11/29/20 13:32 bacitracin Allergy Unknown Verified 11/29/20 13:32 lidocaine Allergy Unknown Y Verified 11/29/20 13:32 neomycin Allergy Unknown Y Verified 11/29/20 13:32 polymyxin B Allergy Unknown Y Verified 11/29/20 13:32 Medications Home Medications Medication Instructions Recorded Confirmed Last Taken fluocinonide 0.05 ml TOPICAL DAILY PRN 11/29/20 11/29/20 Unknown Active Medications Generic Name Dose Route Start Last Admin Trade Name Freq PRN Reason Stop Dose Admin Acetaminophen 650 mg 11/29/20 15:55 11/30/20 00:57 Acetaminophen 325 Mg Tab PO 12/29/20 15:54 650 mg Q4H PRN Administration pain/fever Lactated Ringer's 1,000 mls @ 125 mls/hr 11/29/20 15:55 11/30/20 07:54 Lr IV 12/29/20 15:54 125 mls/hr .Q8H BERTRAND Administration Ketorolac Tromethamine 15 mg 11/29/20 15:55 11/29/20 21:56 Ketorolac Tromethamine 15 Mg/Ml Vial IV 12/04/20 15:54 15 mg Q6H PRN Administration moderate pain Morphine Sulfate 4 mg 11/29/20 15:55 11/29/20 19:34 Morphine Sulfate 4 Mg/Ml 1 Ml Carp\Vial IV 12/13/20 15:54 4 mg Q6H PRN Administration severe pain NPO Date Last Intake of Fluids: 11/30/20 Time Last Intake of Fluids: 00:30 Date Last Intake of Solids: 11/29/20 Time Last Intake of Solids: 17:00 Past Medical History Medical History Gallstones History of hysteroscopy Psoriasis Past Family History Family History Mother Cholecystitis, Onset Age: 37 Breast cancer Father Prostate cancer Pancreatitis Past Surgical History Surgical History History of breast biopsy History of colonoscopy History of discectomy microdiscectomy l3-l5 History of sinus surgery Social History Smoking Status: Never smoker Do You Dip or Chew Tobacco: No Hx Alcohol Use: Yes Alcohol type: wine and hard liquor alcohol intake frequency: a few times a month Hx Substance Use: No Physical Exam Vital Signs Last Vital Signs Temp 36.7 C 11/30/20 10:24 Pulse 62 11/30/20 10:24 Resp 18 11/30/20 10:24 BP 123/85 11/30/20 10:24 Pulse Ox 100 11/30/20 10:24 Testing Laboratory Results 11/30/20 06:38 11/30/20 06:38 Urine Color Dark Yellow 11/29/20 11:02 Urine Appearance Cloudy (Clear) A 11/29/20 11:02 Urine pH 5.5 (4.5-7.5) 11/29/20 11:02 Ur Specific [place] 1.025 (1.000-1.030) 11/29/20 11:02 Urine Protein Negative (Negative) 11/29/20 11:02 Urine Glucose (UA) Negative (Negative) 11/29/20 11:02 Urine Ketones Trace (Negative) H 11/29/20 11:02 Urine Nitrite Negative (Negative) 11/29/20 11:02 Ur Leukocyte Esterase 1+ (Negative) H 11/29/20 11:02 Urine WBC (Auto) 1-5 /hpf (0-5) 11/29/20 11:02 Urine RBC (Auto) 5-10 /hpf (0-4) H 11/29/20 11:02 U Hyaline Cast (Auto) 5-10 /lpf (0-5) H 11/29/20 11:02 U Epithel Cells (Auto) >30 /lpf (0-5) H 11/29/20 11:02 Urine Bacteria (Auto) Negative (Negative) 11/29/20 11:02 11/29/20 11:02 POC Ur Test NEG
[2020-11-30] MEDS ORDERED: ONDANSETRON INJ 2 MG/ML 2 ML VIAL IV PRN (11:17)
[2020-11-30] MEDS ORDERED: METOCLOPRAMIDE HCL INJ 5 MG/ML 2 ML VIAL IV PRN (11:17)
[2020-11-30] MEDS ORDERED: PROMETHAZINE HCL 12.5 MG in SODIUM CHLORIDE 0.9% 50 ML IV PRN (11:17)
[2020-11-30] MEDS ORDERED: ePHEDrine sulfate 50 MG/ML AMP IV PRN (11:17)
[2020-11-30] MEDS ORDERED: HYDROmorphone INJ 2 MG/ML SYR/VIAL IV PRN (11:17)
[2020-11-30] MEDS ORDERED: ATROPINE SULFATE 0.1 MG/ML 10ML SYR IV PRN (11:17)
--- NOTE | 2020-11-30 11:59 | Operative Report ---
Post Operative Report Pre & Post Diagnosis Operation Date: 11/30/20 08:25 Pre-Op Diagnosis: abdominal pain; biliary colic Post-Op Diagnosis: abdominal pain; biliary colic I identified the patient and participated in the time-out.: Yes Procedure Operation Date: 11/30/20 08:25 Actual Procedures p Endoscopic Retrograde Cholangiopancreatogram(Not Applicable) - MD luís Chapman Endoscopic Ultrasonography - MD luís Chapman Laparoscopic Cholecystectomy(Not Applicable) - Phillip Mancia, DO Surgeon Ramon Blackwell MD Cyber Defense Analyst None Estimated Blood Loss 0 Findings See Below (CBD stone and sludge removed, stent placed) Specimens None Description of Procedure EUS/ERCP I attest to the content of the Intraoperative Record and any orders documented therein. Any exceptions are noted below.
[2020-11-30] MEDS ORDERED: PIPERACILLIN/TAZOBACTAM 3.375 GM in DEXTROSE 5% 100 ML IV SCH (12:00)
--- NOTE | 2020-11-30 12:09 | GI REPORT ---
Patient Name: Skylar Gonzalez Procedure Date: 11/30/2020 10:33 AM Date of : 1975 Admit Type: Inpatient Age: 44 Gender: Female Attending MD: Ramon Blackwell MD Procedure: Upper GI endoscopy Providers: Ramon Blackwell MD Referring MD: Edu Baca Md Indications: Epigastric abdominal pain Medicines: General Anesthesia Complications: No immediate complications. Estimated Blood Loss: Estimated blood loss: none. Procedure: Pre-Anesthesia Assessment: - Prior to the procedure, a History and Physical was performed, and patient medications, allergies and sensitivities were reviewed. The patient's tolerance of previous anesthesia was reviewed. - The risks and benefits of the procedure and the sedation options and risks were discussed with the patient. All questions were answered and informed consent was obtained. - Patient identification and proposed procedure were verified prior to the procedure by the physician and the nurse. The procedure was verified in the procedure room. - Pre-procedure physical examination revealed no contraindications to sedation. After obtaining informed consent, the endoscope was passed under direct vision. Throughout the procedure, the patient's blood pressure, pulse, and oxygen saturations were monitored continuously. The Endoscope was introduced through the mouth, and advanced to the second part of duodenum. The upper GI endoscopy was accomplished without difficulty. The patient tolerated the procedure well. Findings: The examined esophagus was normal. The entire examined stomach was normal. Few small fundic gland polyps. Localized mild inflammation characterized by erosions and erythema was found in the duodenal bulb. Impression: - Normal esophagus. - Normal stomach. - Duodenitis. - No specimens collected. Recommendation: - Perform an upper endoscopic ultrasound (UEUS) today. - PO PPI. Ramon Blackwell MD 11/30/2020 12:08:54 PM This report has been signed electronically. Note Initiated On: 11/30/2020 10:33 AM Number of Addenda: 0 I attest to the content of the Intraoperative Record and orders documented therein, exceptions below {[id number]}
--- NOTE | 2020-11-30 12:14 | GI REPORT ---
Patient Name: Skylar Gonzalez Procedure Date: 11/30/2020 11:18 AM Date of : 1975 Admit Type: Inpatient Age: 44 Gender: Female Attending MD: Ramon Blacwkell MD Procedure: Upper EUS Providers: Ramon Blackwell MD Referring MD: Edu Baca Md Indications: Abnormal ultrasound of the abdomen, Elevated liver enzymes, Suspected choledocholithiasis Medicines: General Anesthesia Complications: No immediate complications. Estimated Blood Loss: Estimated blood loss: none. Procedure: Pre-Anesthesia Assessment: - Prior to the procedure, a History and Physical was performed, and patient medications, allergies and sensitivities were reviewed. The patient's tolerance of previous anesthesia was reviewed. - The risks and benefits of the procedure and the sedation options and risks were discussed with the patient. All questions were answered and informed consent was obtained. - Patient identification and proposed procedure were verified prior to the procedure by the physician and the nurse. The procedure was verified in the procedure room. - Pre-procedure physical examination revealed no contraindications to sedation. After obtaining informed consent, the endoscope was passed under direct vision. Throughout the procedure, the patient's blood pressure, pulse, and oxygen saturations were monitored continuously. The Endosonoscope was introduced through the mouth, and advanced to the second part of duodenum. The upper EUS was accomplished without difficulty. The patient tolerated the procedure well. Findings: ENDOSONOGRAPHIC FINDING: : There was no sign of significant endosonographic abnormality in the ampulla. No masses were identified. There was dilation in the common bile duct which measured up to 12 mm. One stone and sludge was visualized endosonographically in the common bile duct. It was hyperechoic and characterized by shadowing. Many stones and sludge were visualized endosonographically in the gallbladder. They were hyperechoic and characterized by shadowing. There was no sign of significant endosonographic abnormality in the entire examined liver. There was no sign of significant endosonographic abnormality in the entire pancreas. The pancreatic duct measured up to 2 mm in diameter. There was no sign of significant endosonographic abnormality in the visualized portion of the left adrenal gland. There was no sign of significant endosonographic abnormality involving the celiac trunk. Impression: - There was no sign of significant pathology in the ampulla. - There was dilation in the common bile duct which measured up to 12 mm. - One stone was visualized endosonographically in the common bile duct. - Many stones were visualized endosonographically in the gallbladder. - There was no evidence of significant pathology in the entire examined liver. - There was no sign of significant pathology in the entire pancreas. - Endosonographic images of the left adrenal gland were unremarkable. - The celiac trunk was endosonographically normal. Recommendation: - Perform an ERCP today. Ramon Blackwell MD 11/30/2020 12:13:32 PM This report has been signed electronically. Note Initiated On: 11/30/2020 11:18 AM Number of Addenda: 0 I attest to the content of the Intraoperative Record and orders documented therein, exceptions below {[id number]}
--- NOTE | 2020-11-30 12:23 | GI REPORT ---
Patient Name: Skylar Gonzalez Procedure Date: 11/30/2020 11:30 AM Date of : 1975 Admit Type: Inpatient Age: 44 Gender: Female Attending MD: Ramon Blackwell MD Procedure: ERCP Providers: Ramon Blackwell MD Referring MD: Edu Baca Md Indications: For therapy of bile duct stone(s) Medicines: General Anesthesia Complications: No immediate complications. Estimated Blood Loss: Estimated blood loss: none. Procedure: Pre-Anesthesia Assessment: - Prior to the procedure, a History and Physical was performed, and patient medications, allergies and sensitivities were reviewed. The patient's tolerance of previous anesthesia was reviewed. - The risks and benefits of the procedure and the sedation options and risks were discussed with the patient. All questions were answered and informed consent was obtained. - Patient identification and proposed procedure were verified prior to the procedure by the physician and the nurse. The procedure was verified in the procedure room. - Pre-procedure physical examination revealed no contraindications to sedation. After obtaining informed consent, the scope was passed under direct vision. Throughout the procedure, the patient's blood pressure, pulse, and oxygen saturations were monitored continuously. The Scope was introduced through the mouth, and advanced to the duodenum and used to inject contrast into the bile duct. The ERCP was accomplished without difficulty. The patient tolerated the procedure well. Findings: The activities director scouting film was normal. The esophagus was successfully intubated under direct vision. The scope was advanced to a normal major papilla in the descending duodenum without detailed examination of the pharynx, larynx and associated structures, and upper GI tract. The upper GI tract was grossly normal. The ventral pancreatic duct was inadvertently cannulated with the short-nosed traction sphincterotome and glidewire without any complications. The main pancreatic duct was normal. A 0.025 inch x 270 cm angled Visiglide wire was passed into the biliary tree. The Fusion OMNI sphincterotome was passed over the guidewire and the bile duct was then deeply cannulated. Contrast was injected. I personally interpreted the bile duct images. Ductal flow of contrast was adequate. Image quality was adequate. Contrast extended to the main bile duct. The main bile duct was dilated. The largest diameter was 12 mm. Biliary sphincterotomy was made with a monofilament traction (standard) sphincterotome using ERBE electrocautery. There was no post-sphincterotomy bleeding. The biliary tree was swept with a 15 mm balloon starting at the bifurcation. Sludge was swept from the duct. One stone was removed. No stones remained. One 5 Fr by 9 cm plastic pancreatic stent with a single external pigtail and no internal flaps was placed into the ventral pancreatic duct. Clear fluid flowed through the stent. The stent was in good position. One 10 Fr by 7 cm plastic biliary stent with a single external flap and a single internal flap was placed into the common bile duct. Bile flowed through the stent. The stent was in good position. Indomethacin 100 mg was given via suppository to decrease the risk of post-ERCP pancreatitis (PEP). Impression: - Choledocholithiasis was found. Complete removal was accomplished by biliary sphincterotomy and balloon extraction. - One plastic pancreatic stent was placed into the ventral pancreatic duct. - One plastic biliary stent was placed into the common bile duct. Recommendation: - [facility]. - Repeat ERCP in 4 weeks to remove stents. Ramon Blackwell MD 11/30/2020 12:22:49 PM This report has been signed electronically. Note Initiated On: 11/30/2020 11:30 AM Number of Addenda: 0 I attest to the content of the Intraoperative Record and orders documented therein, exceptions below {[id number]}
--- NOTE | 2020-11-30 12:29 | Fluoroscopy Report ---
FL ERCP biliary ductal CLINICAL HISTORY: Dilated common bile duct. Gallstones. COMPARISON STUDY: Gallbladder ultrasound dated 11/29/2020 FLUOROSCOPY TIME: 1 minute 25 seconds. NUMBER OF FLUOROSCOPIC IMAGES: 7 FINDINGS: 7 intrasutural fluoroscopic spot images were obtained. The pancreatic duct was cannulized. Guidewire was placed at the common bile duct. Contrast was injected into the common bile duct. A ball oon catheter was swept through the common bile duct. The final image demonstrates placement of a bili wilver enteric stent. IMPRESSION: Fluoroscopic spot images obtained during ERCP with placement of a biliary enteric stent. ACT 112: Negative or not required by law. Electronically signed by: Min Sierra M.D. 11/30/2020 12:28 PM
[2020-11-30] MEDS ORDERED: ATROPINE SO4 1 MG/ML 1ML VIAL ONE (12:51)
[2020-11-30] MEDS ORDERED: KETOROLAC 30 MG/ML VIAL ONE (13:08)
--- NOTE | 2020-11-30 13:16 | Post Operative Brief Note ---
PG Immediate Post Op with CF Date of Surgery November 30, 2020 Pre & Post Diagnosis Operation Date: 11/30/20 08:25 Pre-Op Diagnosis: Choledocholithiasis, Acute cholecystitis Post-Op Diagnosis: Choledocholithiasis, Acute cholecystitis I identified the patient and participated in the time-out.: Yes Procedure Operation Date: 11/30/20 08:25 Actual Procedures s Laparoscopic Cholecystectomy(Not Applicable) - Phillip Mancia DO Surgeon Phillip Mancia DO Master Cook Annabelle Pantoja PA-C Estimated Blood Loss 0 Findings See Below Acutely inflamed, edematous gallbladder Specimens Specimen Description: Permanent Specimen A.) gallbladder and contents Drains Trevino Catheter Anesthesia Type General Complications none Disposition Disposition: Recovery Room
--- NOTE | 2020-11-30 13:20 | Operative Report ---
PG Post Operative Report Pre & Post Diagnosis Operation Date: 11/30/20 08:25 Pre-Op Diagnosis: Choledocholithiasis, Acute cholecystitis Post-Op Diagnosis: Choledocholithiasis, Acute cholecystitis I identified the patient and participated in the time-out.: Yes Procedure Operation Date: 11/30/20 08:25 Actual Procedures s Laparoscopic Cholecystectomy(Not Applicable) - Phillip Mancia DO Surgeon Phillip Mancia DO Residential [employer] Annabelle Pantoja PA-C Estimated Blood Loss 0 Findings See Below Acutely inflamed, edematous gallbladder Fluids see anesthesia record Specimens Gallbladder to pathology Drains None Anesthesia Type General Complications none Disposition Disposition: Recovery Room Indications 44 yo female with choledocholithiasis and acute cholecystitis Description of Procedure The patient was already in the supine position and under general anesthesia having just completed an ERCP. She was given appropriate pre-operative antibiotics. Her abdomen prepped and draped in the usual sterile fashion. A timeout was called, the procedure was verified as Laparoscopic cholecystectomy, possible open, possible intra-operative cholangiogram. Surgical, nursing and anesthesia teams agreed and the procedure was begun. After injection of 0.25% Marcaine with epinephrine, a supraumbilical vertical incision was made and carried down to the fascia using S-retractors. The abdominal wall was then elevated with towel clamps and abdomen entered using the Veress needle confirming position using the saline drop test. Pneumoperitoneum was established. 5mm trocar was placed. Laparoscope was introduced. No injury from entry into the abdomen was visualized after inspection of the abdomen. Three further ports were placed under direct visualization. One 11mm in the subxiphoid region and two 5mm in the RUQ. At this time the abdomen was inspected and the gallbladder identified. The gallbladder was inflamed and edematous consistent with acute cholecystitis. The gallbladder fundus was grasped and retracted cephalad. The gallbladder infundibulum was then grasped and retracted laterally. The cystic duct and cystic artery were then identified and skeletonized. The critical view of safety was obtained. They were both then clipped twice proximally and once distally and then divided using scissors. The gallbladder was then taken off of the liver bed using electrocautery and placed in an endocatch bag and removed from the subxiphoid port. The liver bed was then inspected and no bile leak or bleeding was evident. The subxiphoid port was then closed using 0-Vicryl using the suture passer. The trocars were then removed under direct visualization and no bleeding was present. Abdomen was desufflated. The skin was then closed using 4-0 Monocryl in a subcuticular fashion. Sterile dressings were applied. Needle and sponge counts were correct x 2. At this time the patient was awoken from anesthesia and extubated having remained stable throughout the entire case. The patient was then transported to PACU in stable condition. The physician's grooming assistant was present and scrubbed for the entire case. She was essential in positioning, prepping and draping the patient, driving the laparoscope, retraction and exposure, closure of the incisions and placement of the dressings. I attest to the content of the Intraoperative Record and any orders documented therein. Any exceptions are noted below.
[2020-11-30] MEDS ORDERED: GLUCAGON FOR INJ 1 MG VIAL ONE (13:49)
--- NOTE | 2020-11-30 15:10 | Anesthesiology Progress Note ---
Date of Service November 30, 2020 Anesthesia Post Procedure Vital Signs Vital Signs: Temp Pulse Pulse Resp BP BP Pulse Ox 11/30/20 15:00 49 L 14 120/77 96 11/30/20 14:45 46 L 12 122/78 95 11/30/20 14:35 45 L 12 116/73 96 11/30/20 14:20 36.5 C 56 L 18 116/72 97 11/30/20 14:10 41 L 18 123/78 95 11/30/20 14:00 43 L 18 117/69 97 11/30/20 13:50 44 L 20 121/72 97 11/30/20 13:40 43 L 18 124/70 97 11/30/20 13:30 48 L 16 128/77 97 11/30/20 13:28 36.1 C L 56 L 20 123/76 97 11/30/20 10:24 36.7 C 62 18 123/85 100 11/30/20 07:58 36.8 C 56 L 16 109/74 98 11/29/20 23:30 36.5 C 60 16 102/69 99 11/29/20 15:59 36.1 C L 51 L 18 126/84 98 Pain Intensity Abdomen: Pain Intensity: 0 Transfer of Care Handoff Completed per policy Notes Mental Status: alert / awake / arousable and participated in evaluation Patient Amnestic to Procedure: Yes Nausea / Vomiting: adequately controlled Pain: adequately controlled Airway Patency, RR, SpO2: stable & adequate BP & HR: stable & adequate Hydration State: stable & adequate Anesthetic Complications: no major complications apparent
[2020-11-30] MEDS ORDERED: oxyCODONE HCL IR 5 MG TAB (IMMEDIATE RELEASE) PO PRN (15:32)
[2020-11-30] MEDS ORDERED: PIPERACILLIN/TAZOBACTAM 4.5 GM in DEXTROSE 5% 100 ML IV STA (15:55)
[2020-11-30] MEDS: KETOROLAC TROMETHAMINE 15 MG/ML VIAL IV PRN (17:39)
[2020-11-30] MEDS: PIPERACILLIN/TAZOBACTAM 3.375 GM in DEXTROSE 5% 100 ML IV SCH (22:11)
[2020-11-30] MEDS: MoRPHine SULFATE 4 MG/ML 1 ML CARP\\VIAL IV PRN (22:11)
[2020-12-01] MEDS ORDERED: COUGH DROP (SUGAR FREE) LOZ 24 LOZ/1 BOX BUCCAL PRN (00:37)
[2020-12-01] MEDS: MoRPHine SULFATE 2 MG/ML CARP IV PRN ×2 (04:01→13:54)
[2020-12-01] MEDS: PIPERACILLIN/TAZOBACTAM 3.375 GM in DEXTROSE 5% 100 ML IV SCH ×3 (05:52→21:30)
[2020-12-01 06:15] LABS: Hematocrit (blood only) 33.9 % (37-47); Hemoglobin 11.3 g/dL (12.0-16.0); Mean Corpuscular Hemoglobin 28.8 pg (25-34); Mean Corpuscular Hgb Conc 33.3 g/dL (32-36); Mean Corpuscular Volume 86.3 fL (80-100); Mean Platelet Volume 10.5 fL (7.4-10.4); Platelet Count 321 K/uL (130-400); RDW Coefficient of Variation 13.7 % (11.5-14.5); RDW Standard Deviation 43.6 fL (36.4-46.3); Red Blood Count 3.93 M/uL (4.2-5.4); White Blood Count 9.86 K/uL (4.8-10.8)
[2020-12-01 06:55] LABS: BUN Creatinine Ratio 9.1 (10-20); Calcium 7.6 mg/dl (8.5-10.1); Creatinine Clr Calc Pharmacy 130.4 ml/min; Est GFR (African American) 116.4 ml/min; Est GFR (Non-African American) 100.4 ml/min; Potassium 3.9 mmol/L (3.5-5.1)
[2020-12-01 06:58] LABS: Bilirubin,Total 0.9 mg/dl (0.2-1); Globulin 3.1 gm/dl (2.5-4.0); Phosphorus 3.7 mg/dl (2.5-4.9); Total Protein 6.1 gm/dl (6.4-8.2)
[2020-12-01] MEDS: KETOROLAC TROMETHAMINE 15 MG/ML VIAL IV PRN (07:36)
[2020-12-01] MEDS: LACTATED RINGER'S 1,000 ML IV SCH ×3 (07:37→21:30)
--- NOTE | 2020-12-01 07:50 | Hospitalist Progress Note ---
Date of Service December 01, 2020 Assessment & Plan (1) Cholelithiasis: (2) Biliary colic: (3) Leukocytosis: Choledocholithiasis Acute cholecystitis LFTS: Ast 46, ALT 51, Alp Phos 86, T bili 1.4, direct 0.4 Gallbladder ultrasound IMPRESSION: 1. Mild gallbladder distention with cholelithiasis. The sonographic Ferguson sign was reported as positive, however no gallbladder wall thickening or pericholecystic fluid identified to suggest acute cholecystitis. 2. Dilation of the common bile duct. Correlate with serum bilirubin to exclude obstructive etiology. admitted to med/surg Consulted general surgery and GI - now s/p ERCP / EUS (11/30), followed by laparoscopic cholecystectomy Tolerated procedure well However not passing gas or BM yet low fat diet CXR reviewed, obtained ecg pt without significant pmh, risk factors IVF LR @ 125/hr Started IV zosyn IV toradol 15mg q6h moderate pain; IV morphine 4mg q6h to be used for severe pain only repeat CMP, CBC in a.m. Dispo: med surg PCP: Dr. Trujillo Full Code DVT ppx: SCD/TEDS, patient is ambulating Admission and Anticipated Discharge Date Admission Date: November 30, 2020 Subjective Patient seen in follow-up of choledocholithiasis, acute cholecystitis, now status post ERCP, EUS, lap carlos Currently patient feels well, except that she is not passing gas, or had a bowel movement yet She is currently walking in the hallway Denies fevers chills, chest pain shortness of breath, nausea or vomiting. Review of Systems Review of Systems: All systems reviewed & are unremarkable except as noted in HPI & below Constitutional: no fever and no chills Respiratory: no cough and no dyspnea Cardiovascular: no chest pain and no palpitations Gastrointestinal: + abdominal pain (mild when moving); no nausea and no vomiting Physical Exam Physical Exam: Constitutional: WD/WN, vitals as above, NAD Head: Normocephalic, Atraumatic Eyes: PERRL, conjunctivae normal, anicteric sclerae ENMT: external ear and nose normal, oropharynx normal Neck: normal visual inspection Respiratory: normal respiratory effort, lungs clear to auscultation, no wheeze, rales, rhonchi. Normal insp/exp effort, no accessory muscle use Cardiovascular: RRR, no murmur, no edema Vessels: no JVD or carotid bruit Chest: normal inspection of chest Abdomen: normal bowel sounds, soft, mildly tender to palp. at RUQ Musculoskeletal: extremities motor strength 5/5 Skin: no rashes, warm and dry normal turgor Neurologic: PERRL, EOMI, no face palsy, no dysarthria CN's II-XI intact bilaterally and moves all extremities Psychiatric: A+Ox3, euthymic affect Results & Data Results & Data ([facility]) Vital Signs (Past 12 Hours) Vital Signs Temp Pulse Resp BP Pulse Ox 12/01/20 03:25 36.8 C 49 L 18 121/79 96 12/01/20 00:08 36.7 C 59 L 18 121/76 96 Laboratory Results 12/01/20 12/01/20 Range/Units 05:38 05:38 WBC 9.86 (4.8-10.8) K/uL RBC 3.93 L (4.2-5.4) M/uL Hgb 11.3 L (12.0-16.0) g/dL Hct 33.9 L (37-47) % MCV 86.3 (80-100) fL MCH 28.8 (25-34) pg MCHC 33.3 (32-36) g/dL RDW Std Deviation 43.6 (36.4-46.3) fL RDW Coeff of Onur 13.7 (11.5-14.5) % Plt Count 321 (130-400) K/uL MPV 10.5 H (7.4-10.4) fL Sodium 140 (136-145) mmol/L Potassium 3.9 (3.5-5.1) mmol/L Chloride 110 H (98-107) mmol/L Carbon Dioxide 23 (21-32) mmol/L Anion Gap 7.0 (3-11) BUN 7 (7-18) mg/dl Creatinine 0.72 (0.6-1.2) mg/dl Est Cr Clr Drug Dosing 130.4 ml/min Est GFR ( Amer) 116.4 ml/min Est GFR (Non-Af Amer) 100.4 ml/min BUN/Creatinine Ratio 9.1 L (10-20) Glucose 101 H (70-99) mg/dl Calcium 7.6 L (8.5-10.1) mg/dl Phosphorus 3.7 (2.5-4.9) mg/dl Magnesium 2.0 (1.8-2.4) mg/dl Total Bilirubin 0.9 (0.2-1) mg/dl AST 37 (15-37) U/L ALT 85 H (12-78) U/L Alkaline Phosphatase 64 (45-117) U/L Total Protein 6.1 L (6.4-8.2) gm/dl Albumin 3.0 L (3.4-5.0) gm/dl Globulin 3.1 (2.5-4.0) gm/dl Albumin/Globulin Ratio 1.0 (0.9-2) Medications Administered Current Inpatient Medications Acetaminophen (Acetaminophen 325 Mg Tab) 650 mg PO Q4H PRN PRN Reason: pain/fever Stop: 12/29/20 15:54 Last Admin: 11/30/20 20:27 Dose: 650 mg Documented by: Al Hydrox/Mg Hydrox/Simethicone (Aluminum/Magnesium Susp 30 Ml Udc) 30 ml PO Q6H PRN PRN Reason: Dyspepsia Stop: 12/29/20 15:54 Lactated Ringer's (Lr) 1,000 mls @ 80 mls/hr IV .[id number] BERTRAND Stop: 12/30/20 15:31 Last Admin: 12/01/20 07:37 Dose: 80 mls/hr Documented by: Piperacillin Sod/Tazobactam (Sod 3.375 gm/ Dextrose) 115 mls @ 28.75 mls/hr IV Q8H [facility]; Protocol Stop: 12/10/20 21:59 Last Admin: 12/01/20 05:52 Dose: 28.8 mls/hr Documented by: Ketorolac Tromethamine (Ketorolac Tromethamine 15 Mg/Ml Vial) 15 mg IV Q6H PRN PRN Reason: moderate pain Stop: 12/04/20 15:54 Last Admin: 12/01/20 07:36 Dose: 15 mg Documented by: Magnesium Hydroxide (Magnesium Hydroxide Susp 30 Ml Udc) 30 ml PO Q6H PRN PRN Reason: Constipation Stop: 12/29/20 15:54 Menthol (Cough Drop (Sugar Free) Lluvia 24 Lluvia/1 Box) 1 lluvia BUCCAL PRN PRN PRN Reason: Sore Throat Stop: 12/31/20 00:36 Last Admin: 12/01/20 05:52 Dose: 1 lluvia Documented by: Miscellaneous Information (Piperacill/Tazobac Consult Active) 1 ea N/A UD PRN PRN Reason: Consult Stop: 12/30/20 07:11 Morphine Sulfate (Morphine Sulfate 2 Mg/Ml Carp) 2 mg IV Q2H PRN PRN Reason: Pain Stop: 12/14/20 15:31 Last Admin: 12/01/20 04:01 Dose: 2 mg Documented by: Morphine Sulfate (Morphine Sulfate 4 Mg/Ml 1 Ml Carp\Vial) 4 mg IV Q2H PRN PRN Reason: Pain Stop: 12/14/20 15:31 Last Admin: 11/30/20 22:11 Dose: 4 mg Documented by: Ondansetron HCl (Ondansetron Inj 2 Mg/Ml 2 Ml Vial) 4 mg IV Q6H PRN PRN Reason: Nausea Stop: 12/29/20 15:54 Oxycodone HCl (Oxycodone Hcl Ir 5 Mg Tab (Immediate Release)) 5 mg PO Q4H PRN PRN Reason: Pain Stop: 12/14/20 15:31 Oxycodone HCl (Oxycodone Hcl Ir 5 Mg Tab (Immediate Release)) 10 mg PO Q4H PRN PRN Reason: Pain Stop: 12/14/20 15:31 Polyethylene Glycol (Polyethylene (Miralax) 17 Gm Pack) 17 gm PO DAILY PRN PRN Reason: Constipation Stop: 12/29/20 15:54
--- NOTE | 2020-12-01 10:50 | Surgery Progress Note ---
Date of Service December 01, 2020 Assessment & Plan (1) Cholelithiasis: POD#1 lap carlos (Dr. Mancia)/ ERCP (GI) ERCP revealed + CBD stones, biliary/pancreatic stents placed Today WBC 9.8, LFTs--> Tb: 0.9, AST: 37, ALT: 85, Alkp:64 Okay to advance diet as tolerates From our standpoint patient does not need further abx for home We will check on patient later today, if tolerates a diet and pain better controlled can consider possible discharge to home Admission and Anticipated Discharge Date Admission Date: November 30, 2020 Supervising Physician Co-Signing Physician Notes I personally saw and evaluated the patient with Annabelle Pantoja PA-C and agree with the assessment and plan. 44 yo female POD#1 lap carlos/ERCP -Still with some upper abdominal pain and nausea -Will check lipase to r/o post ERCP pancreatitis -LFT's and WBC normal -Advance diet as tolerated -Hopeful for discharge tomorrow Subjective Patient feeling okay this AM. Tried some breakfast this AM and felt some pains in her RUQ she thinks is related to gas. She has been ambulating the halls to try and work it out. Otherwise she is denying nausea/vomiting. No flatus/BM. Overall she says her pain is much better than the flare ups she was having at home. Physical Exam Physical Exam: awake/alert; ambulating the halls without assistance Constitutional: no acute distress Respiratory: normal respiratory effort Gastrointestinal (Abdomen): Inspection/Auscultation: + abdominal surgical incision (c/d/i scant dark bloody drainage to umbilical incision) Percussion/Palpation: + abdomen tender (ttp in RUQ region) and abdomen soft Results & Data ([facility]) Vital Signs (Past 12 Hours) Vital Signs Temp Pulse Resp BP Pulse Ox 12/01/20 07:49 36.7 C 46 L 15 121/79 98 12/01/20 03:25 36.8 C 49 L 18 121/79 96 12/01/20 00:08 36.7 C 59 L 18 121/76 96 PG Care Time/CCT Total # of Minutes Spent Total Time Spent with Patient: Total time spent is greater than 50% in coordination of care (as documented) at patient's floor/unit and/or counseling patient: Coding Level of Care Code None Diagnoses Cholelithiasis K80.20
[2020-12-01] MEDS: oxyCODONE HCL IR 5 MG TAB (IMMEDIATE RELEASE) PO PRN ×2 (16:55→22:24)
[2020-12-01] MEDS: MoRPHine SULFATE 4 MG/ML 1 ML CARP\\VIAL IV PRN (17:22)
[2020-12-01] MEDS: ONDANSETRON INJ 2 MG/ML 2 ML VIAL IV PRN (20:01)
[2020-12-02] MEDS: LACTATED RINGER'S 1,000 ML IV SCH ×5 (02:36→23:59)
[2020-12-02] MEDS: oxyCODONE HCL IR 5 MG TAB (IMMEDIATE RELEASE) PO PRN ×2 (02:36→06:52)
[2020-12-02] MEDS: ONDANSETRON INJ 2 MG/ML 2 ML VIAL IV PRN ×2 (02:36→11:15)
[2020-12-02] MEDS: PIPERACILLIN/TAZOBACTAM 3.375 GM in DEXTROSE 5% 100 ML IV SCH (05:49)
--- NOTE | 2020-12-02 05:52 | Electrocardiogram Report ---
Test Reason : Blood Pressure : / mmHG Vent. Rate : 049 BPM Atrial Rate : 049 BPM P-R Int : 216 ms QRS Dur : 090 ms QT Int : 466 ms P-R-T Axes : 050 -05 006 degrees QTc Int : 420 ms Sinus bradycardia with 1st degree A-V block Otherwise normal ECG When compared with ECG of 29-NOV-2020 14:10, No significant change was found Confirmed by Siddhartha Garber ([id number]) on 12/02/2020 5:52:15 AM Referred By: REFERRED SELF Confirmed By:Siddhartha Garber
[2020-12-02 07:46] LABS: Hematocrit (blood only) 31.5 % (37-47); Hemoglobin 10.2 g/dL (12.0-16.0); Mean Corpuscular Hemoglobin 28.7 pg (25-34); Mean Corpuscular Hgb Conc 32.4 g/dL (32-36); Mean Corpuscular Volume 88.5 fL (80-100); Mean Platelet Volume 10.6 fL (7.4-10.4); Platelet Count 289 K/uL (130-400); RDW Coefficient of Variation 14.1 % (11.5-14.5); Red Blood Count 3.56 M/uL (4.2-5.4); White Blood Count 8.23 K/uL (4.8-10.8)
[2020-12-02 08:04] LABS: Albumin Level 2.7 gm/dl (3.4-5.0); BUN Creatinine Ratio 14.5 (10-20); Calcium 7.5 mg/dl (8.5-10.1); Creatinine Clr Calc Pharmacy 130.8 ml/min; Est GFR (African American) 116.4 ml/min; Est GFR (Non-African American) 100.4 ml/min; Potassium 3.6 mmol/L (3.5-5.1)
[2020-12-02 08:06] LABS: Albumin Globulin Ratio 0.9 (0.9-2); Bilirubin,Total 0.8 mg/dl (0.2-1); Globulin 2.9 gm/dl (2.5-4.0); Total Protein 5.6 gm/dl (6.4-8.2)
--- NOTE | 2020-12-02 08:24 | Surgery Progress Note ---
Date of Service December 02, 2020 Assessment & Plan (1) Cholelithiasis: POD#2 lap carlos (Dr. Mancia)/ ERCP (GI) Has some post ERCP pancreatitis- patient with Lipase of ~1900 yesterday, today 1200. WBC 8 and LFTs WNL Okay to continue on clear liquids today as tolerates Can advance diet as tolerates symptomatically Likely patient will be here until tomorrow Follow up with Dr. Mancia in clinic within 1-2 weeks [facility] Surgery covering over the weekend Admission and Anticipated Discharge Date Admission Date: November 30, 2020 Subjective Patient reports some lingering pain, mostly in the RUQ. She is starting to feel some lower abdominal "rumblings". Been having on/off nausea with clear liquids thus far, but has not had anything to try yet this AM. Physical Exam Physical Exam: awake/alert Constitutional: no acute distress Gastrointestinal (Abdomen): Inspection/Auscultation: + abdominal surgical incision (c/d/i) Percussion/Palpation: + abdomen tender (ttp in RUQ) and abdomen soft Results & Data ([facility]) Vital Signs (Past 12 Hours) Vital Signs Temp Pulse Resp BP Pulse Ox 12/02/20 07:17 37.1 C 55 L 20 103/62 99 12/01/20 23:46 36.5 C 55 L 18 103/67 94 PG Care Time/CCT Total # of Minutes Spent Total Time Spent with Patient: Total time spent is greater than 50% in coordination of care (as documented) at patient's floor/unit and/or counseling patient: Coding Level of Care Code None Diagnoses Cholelithiasis K80.20
[2020-12-02] MEDS ORDERED: POTASSIUM CHLORIDE CRTAB 20 MEQ TABCR PO STA (10:12)
--- NOTE | 2020-12-02 10:14 | Hospitalist Progress Note ---
Date of Service December 02, 2020 Assessment & Plan (1) Cholelithiasis: (2) Biliary colic: (3) Leukocytosis: Choledocholithiasis Acute cholecystitis Post ERCP pancreatitis LFTS: Ast 46, ALT 51, Alp Phos 86, T bili 1.4, direct 0.4 Gallbladder ultrasound IMPRESSION: 1. Mild gallbladder distention with cholelithiasis. The sonographic Ferguson sign was reported as positive, however no gallbladder wall thickening or pericholecystic fluid identified to suggest acute cholecystitis. 2. Dilation of the common bile duct. Correlate with serum bilirubin to exclude obstructive etiology. admitted to med/surg Consulted general surgery and GI - now s/p ERCP / EUS (11/30), followed by laparoscopic cholecystectomy Tolerated procedure well initially However developed abdominal pain that got worse throughout the day yesterday (12/01), 10 out of 10 lipase ordered by surgical service, elevated at 1900 Started patient on IVF LR, diet only to clear liquids currently abdominal pain feels better than yesterday Lipase down to 1200 Continue IV fluids, n.p.o./clear liquids, as tolerated, pain control Ok to dc IV zosyn Dispo: med surg PCP: Dr. Trujillo Full Code DVT ppx: SCD/TEDS, patient is ambulating Admission and Anticipated Discharge Date Admission Date: November 30, 2020 Subjective Patient seen in follow-up of choledocholithiasis, acute cholecystitis, now status post ERCP, EUS, lap carlos Unfortunately seems at patient developed post ERCP pancreatitis Reports abdominal pain became worse and worse yesterday, and later in the day yesterday it was 10 out of 10 Lipase ordered by surgical service, and was elevated, I started patient on LR and diet down to clear liquids Now she still feels abdominal discomfort, however says better than last evening Denies fevers chills, chest pain shortness of breath, nausea or vomiting. Review of Systems Review of Systems: All systems reviewed & are unremarkable except as noted in HPI & below Constitutional: no fever and no chills Respiratory: no cough and no dyspnea Cardiovascular: no chest pain and no palpitations Gastrointestinal: + abdominal pain; no nausea and no vomiting Physical Exam Physical Exam: Constitutional: WD/WN, vitals as above, NAD Head: Normocephalic, Atraumatic Eyes: PERRL, conjunctivae normal, anicteric sclerae ENMT: external ear and nose normal, oropharynx normal Neck: normal visual inspection Respiratory: normal respiratory effort, lungs clear to auscultation, no wheeze, rales, rhonchi. Normal insp/exp effort, no accessory muscle use Cardiovascular: RRR, no murmur, no edema Vessels: no JVD or carotid bruit Chest: normal inspection of chest Abdomen: normal bowel sounds, soft, mildly tender to palp. at RUQ Musculoskeletal: extremities motor strength 5/5 Skin: no rashes, warm and dry normal turgor Neurologic: PERRL, EOMI, no face palsy, no dysarthria CN's II-XI intact bilaterally and moves all extremities Psychiatric: A+Ox3, euthymic affect Results & Data Results & Data ([facility]) Vital Signs (Past 12 Hours) Vital Signs Temp Pulse Resp BP Pulse Ox 12/02/20 07:17 37.1 C 55 L 20 103/62 99 12/01/20 23:46 36.5 C 55 L 18 103/67 94 Laboratory Results 12/02/20 12/02/20 12/01/20 Range/Units 06:57 06:57 14:24 WBC 8.23 (4.8-10.8) K/uL RBC 3.56 L (4.2-5.4) M/uL Hgb 10.2 L (12.0-16.0) g/dL Hct 31.5 L (37-47) % MCV 88.5 (80-100) fL MCH 28.7 (25-34) pg MCHC 32.4 (32-36) g/dL RDW Std Deviation 46.0 (36.4-46.3) fL RDW Coeff of Onur 14.1 (11.5-14.5) % Plt Count 289 (130-400) K/uL MPV 10.6 H (7.4-10.4) fL Sodium 139 (136-145) mmol/L Potassium 3.6 (3.5-5.1) mmol/L Chloride 108 H (98-107) mmol/L Carbon Dioxide 27 (21-32) mmol/L Anion Gap 4.0 (3-11) BUN 11 D (7-18) mg/dl Creatinine 0.72 (0.6-1.2) mg/dl Est Cr Clr Drug Dosing 130.8 ml/min Est GFR ( Amer) 116.4 ml/min Est GFR (Non-Af Amer) 100.4 ml/min BUN/Creatinine Ratio 14.5 (10-20) Glucose 94 (70-99) mg/dl Calcium 7.5 L (8.5-10.1) mg/dl Total Bilirubin 0.8 (0.2-1) mg/dl AST 16 (15-37) U/L ALT 57 (12-78) U/L Alkaline Phosphatase 58 (45-117) U/L Total Protein 5.6 L (6.4-8.2) gm/dl Albumin 2.7 L (3.4-5.0) gm/dl Globulin 2.9 (2.5-4.0) gm/dl Albumin/Globulin Ratio 0.9 (0.9-2) Lipase 1202 H 1959 H (73-393) U/L Medications Administered Current Inpatient Medications Acetaminophen (Acetaminophen 325 Mg Tab) 650 mg PO Q4H PRN PRN Reason: pain/fever Stop: 12/29/20 15:54 Last Admin: 11/30/20 20:27 Dose: 650 mg Documented by: Al Hydrox/Mg Hydrox/Simethicone (Aluminum/Magnesium Susp 30 Ml Udc) 30 ml PO Q6H PRN PRN Reason: Dyspepsia Stop: 12/29/20 15:54 Piperacillin Sod/Tazobactam (Sod 3.375 gm/ Dextrose) 115 mls @ 28.75 mls/hr IV Q8H [facility]; Protocol Stop: 12/10/20 21:59 Last Admin: 12/02/20 05:49 Dose: 28.8 mls/hr Documented by: Lactated Ringer's (Lr) 1,000 mls @ 180 mls/hr IV .Q5H34M BERTRAND Stop: 12/31/20 15:14 Last Admin: 12/02/20 09:07 Dose: 180 mls/hr Documented by: Ketorolac Tromethamine (Ketorolac Tromethamine 15 Mg/Ml Vial) 15 mg IV Q6H PRN PRN Reason: moderate pain Stop: 12/04/20 15:54 Last Admin: 12/01/20 07:36 Dose: 15 mg Documented by: Magnesium Hydroxide (Magnesium Hydroxide Susp 30 Ml Udc) 30 ml PO Q6H PRN PRN Reason: Constipation Stop: 12/29/20 15:54 Menthol (Cough Drop (Sugar Free) Lluvia 24 Lluvia/1 Box) 1 lluvia BUCCAL PRN PRN PRN Reason: Sore Throat Stop: 12/31/20 00:36 Last Admin: 12/01/20 05:52 Dose: 1 lluvia Documented by: Miscellaneous Information (Piperacill/Tazobac Consult Active) 1 ea N/A UD PRN PRN Reason: Consult Stop: 12/30/20 07:11 Morphine Sulfate (Morphine Sulfate 2 Mg/Ml Carp) 2 mg IV Q2H PRN PRN Reason: Pain Stop: 12/14/20 15:31 Last Admin: 12/01/20 13:54 Dose: 2 mg Documented by: Morphine Sulfate (Morphine Sulfate 4 Mg/Ml 1 Ml Carp\Vial) 4 mg IV Q2H PRN PRN Reason: Pain Stop: 12/14/20 15:31 Last Admin: 12/01/20 17:22 Dose: 4 mg Documented by: Ondansetron HCl (Ondansetron Inj 2 Mg/Ml 2 Ml Vial) 4 mg IV Q6H PRN PRN Reason: Nausea Stop: 12/29/20 15:54 Last Admin: 12/02/20 02:36 Dose: 4 mg Documented by: Oxycodone HCl (Oxycodone Hcl Ir 5 Mg Tab (Immediate Release)) 5 mg PO Q4H PRN PRN Reason: Pain Stop: 12/14/20 15:31 Oxycodone HCl (Oxycodone Hcl Ir 5 Mg Tab (Immediate Release)) 10 mg PO Q4H PRN PRN Reason: Pain Stop: 12/14/20 15:31 Last Admin: 12/02/20 06:52 Dose: 10 mg Documented by: Polyethylene Glycol (Polyethylene (Miralax) 17 Gm Pack) 17 gm PO DAILY PRN PRN Reason: Constipation Stop: 12/29/20 15:54 Last Admin: 12/01/20 11:13 Dose: 17 gm Documented by: Potassium Chloride (Potassium Chloride Crtab 20 Meq Tabcr) 20 meq PO NOW STA Stop: 12/02/20 10:13
[2020-12-02] MEDS: KETOROLAC TROMETHAMINE 15 MG/ML VIAL IV PRN (11:15)
[2020-12-02] MEDS ORDERED: PROMETHAZINE HCL 6.25 MG in SODIUM CHLORIDE 0.9% 50 ML IV STA (15:01)
[2020-12-02] MEDS: ACETAMINOPHEN 325 MG TAB PO PRN (21:38)
[2020-12-03] MEDS: LACTATED RINGER'S 1,000 ML IV SCH (04:00)
[2020-12-03 05:58] LABS: Hematocrit (blood only) 32.2 % (37-47); Hemoglobin 10.7 g/dL (12.0-16.0); Mean Corpuscular Hemoglobin 28.6 pg (25-34); Mean Corpuscular Hgb Conc 33.2 g/dL (32-36); Mean Corpuscular Volume 86.1 fL (80-100); Mean Platelet Volume 10.2 fL (7.4-10.4); Platelet Count 287 K/uL (130-400); RDW Standard Deviation 43.8 fL (36.4-46.3); Red Blood Count 3.74 M/uL (4.2-5.4); White Blood Count 7.24 K/uL (4.8-10.8)
[2020-12-03 06:22] LABS: Albumin Level 2.7 gm/dl (3.4-5.0); BUN Creatinine Ratio 10.6 (10-20); Calcium 7.9 mg/dl (8.5-10.1); Creatinine Clr Calc Pharmacy 159.6 ml/min; Est GFR (African American) 127.4 ml/min; Est GFR (Non-African American) 109.9 ml/min; Magnesium 1.7 mg/dl (1.8-2.4); Potassium 3.7 mmol/L (3.5-5.1)
[2020-12-03 06:28] LABS: Albumin Globulin Ratio 0.9 (0.9-2); Globulin 3.1 gm/dl (2.5-4.0); Phosphorus 3.6 mg/dl (2.5-4.9); Total Protein 5.8 gm/dl (6.4-8.2)
--- NOTE | 2020-12-03 06:57 | Hospitalist Progress Note ---
Date of Service December 03, 2020 Assessment & Plan (1) Cholelithiasis: (2) Biliary colic: (3) Leukocytosis: Choledocholithiasis Acute cholecystitis Post ERCP pancreatitis LFTS: Ast 46, ALT 51, Alp Phos 86, T bili 1.4, direct 0.4 Gallbladder ultrasound IMPRESSION: 1. Mild gallbladder distention with cholelithiasis. The sonographic Ferguson sign was reported as positive, however no gallbladder wall thickening or pericholecystic fluid identified to suggest acute cholecystitis. 2. Dilation of the common bile duct. Correlate with serum bilirubin to exclude obstructive etiology. admitted to med/surg Consulted general surgery and GI - now s/p ERCP / EUS (11/30), followed by laparoscopic cholecystectomy Tolerated procedure well initially However developed abdominal pain that got worse throughout the day on (12/01), 10 out of 10 lipase ordered by surgical service, elevated at 1900 Started patient on IVF LR, diet only to clear liquids Lipase down to 1200 Continue IV fluids, n.p.o./clear liquids, as tolerated, pain control Ok to dc IV zosyn 12/03/20 - Patient is currently feeling much better, abdominal pain mostly resolved. Tolerated breakfast. Lipase is down to normal limit. Dispo: med surg PCP: Dr. Trujillo Full Code DVT ppx: SCD/TEDS, patient is ambulating Admission and Anticipated Discharge Date Admission Date: November 30, 2020 Subjective Patient seen in follow-up of choledocholithiasis, acute cholecystitis, now status post ERCP, EUS, lap carlos Unfortunately patient developed post ERCP pancreatitis Patient is now feeling much better, abdominal pain is minimal. She was able to tolerate regular breakfast without much discomfort Per surgery, patient would be okay for discharge Discussed with the patient, she will be having lunch and will let us know how she feels Currently no chest pain, shortness of breath, nausea or vomiting, she is passing gas Review of Systems Review of Systems: All systems reviewed & are unremarkable except as noted in HPI & below Constitutional: no fever and no chills Respiratory: no cough and no dyspnea Cardiovascular: no chest pain and no palpitations Gastrointestinal: no abdominal pain, no nausea and no vomiting Physical Exam Physical Exam: Constitutional: WD/WN, vitals as above, NAD Head: Normocephalic, Atraumatic Eyes: PERRL, conjunctivae normal, anicteric sclerae ENMT: external ear and nose normal, oropharynx normal Neck: normal visual inspection Respiratory: normal respiratory effort, lungs clear to auscultation, no wheeze, rales, rhonchi. Normal insp/exp effort, no accessory muscle use Cardiovascular: RRR, no murmur, no edema Vessels: no JVD or carotid bruit Chest: normal inspection of chest Abdomen: normal bowel sounds, soft, mildly tender to palp. at RUQ Musculoskeletal: extremities motor strength 5/5 Skin: no rashes, warm and dry normal turgor Neurologic: PERRL, EOMI, no face palsy, no dysarthria CN's II-XI intact bilaterally and moves all extremities Psychiatric: A+Ox3, euthymic affect Results & Data Results & Data ([facility]) Vital Signs (Past 12 Hours) Vital Signs Temp Pulse Resp BP Pulse Ox 12/02/20 23:40 36.6 C 60 15 114/76 100 Laboratory Results 12/03/20 12/03/20 12/02/20 Range/Units 05:44 05:44 06:57 WBC 7.24 (4.8-10.8) K/uL RBC 3.74 L (4.2-5.4) M/uL Hgb 10.7 L (12.0-16.0) g/dL Hct 32.2 L (37-47) % MCV 86.1 (80-100) fL MCH 28.6 (25-34) pg MCHC 33.2 (32-36) g/dL RDW Std Deviation 43.8 (36.4-46.3) fL RDW Coeff of Onur 14.0 (11.5-14.5) % Plt Count 287 (130-400) K/uL MPV 10.2 (7.4-10.4) fL Sodium 141 139 (136-145) mmol/L Potassium 3.7 3.6 (3.5-5.1) mmol/L Chloride 110 H 108 H (98-107) mmol/L Carbon Dioxide 25 27 (21-32) mmol/L Anion Gap 6.0 4.0 (3-11) BUN 6 L D 11 D (7-18) mg/dl Creatinine 0.59 L 0.72 (0.6-1.2) mg/dl Est Cr Clr Drug Dosing 159.6 130.8 ml/min Est GFR ( Amer) 127.4 116.4 ml/min Est GFR (Non-Af Amer) 109.9 100.4 ml/min BUN/Creatinine Ratio 10.6 14.5 (10-20) Glucose 86 94 (70-99) mg/dl Calcium 7.9 L 7.5 L (8.5-10.1) mg/dl Phosphorus 3.6 (2.5-4.9) mg/dl Magnesium 1.7 L (1.8-2.4) mg/dl Total Bilirubin 1.0 0.8 (0.2-1) mg/dl AST 14 L 16 (15-37) U/L ALT 50 57 (12-78) U/L Alkaline Phosphatase 63 58 (45-117) U/L Total Protein 5.8 L 5.6 L (6.4-8.2) gm/dl Albumin 2.7 L 2.7 L (3.4-5.0) gm/dl Globulin 3.1 2.9 (2.5-4.0) gm/dl Albumin/Globulin Ratio 0.9 0.9 (0.9-2) Lipase 296 1202 H (73-393) U/L 12/02/20 Range/Units 06:57 WBC 8.23 (4.8-10.8) K/uL RBC 3.56 L (4.2-5.4) M/uL Hgb 10.2 L (12.0-16.0) g/dL Hct 31.5 L (37-47) % MCV 88.5 (80-100) fL MCH 28.7 (25-34) pg MCHC 32.4 (32-36) g/dL RDW Std Deviation 46.0 (36.4-46.3) fL RDW Coeff of Onur 14.1 (11.5-14.5) % Plt Count 289 (130-400) K/uL MPV 10.6 H (7.4-10.4) fL Sodium (136-145) mmol/L Potassium (3.5-5.1) mmol/L Chloride (98-107) mmol/L Carbon Dioxide (21-32) mmol/L Anion Gap (3-11) BUN (7-18) mg/dl Creatinine (0.6-1.2) mg/dl Est Cr Clr Drug Dosing ml/min Est GFR ( Amer) ml/min Est GFR (Non-Af Amer) ml/min BUN/Creatinine Ratio (10-20) Glucose (70-99) mg/dl Calcium (8.5-10.1) mg/dl Phosphorus (2.5-4.9) mg/dl Magnesium (1.8-2.4) mg/dl Total Bilirubin (0.2-1) mg/dl AST (15-37) U/L ALT (12-78) U/L Alkaline Phosphatase (45-117) U/L Total Protein (6.4-8.2) gm/dl Albumin (3.4-5.0) gm/dl Globulin (2.5-4.0) gm/dl Albumin/Globulin Ratio (0.9-2) Lipase (73-393) U/L Medications Administered Current Inpatient Medications Acetaminophen (Acetaminophen 325 Mg Tab) 650 mg PO Q4H PRN PRN Reason: pain/fever Stop: 12/29/20 15:54 Last Admin: 12/02/20 21:38 Dose: 650 mg Documented by: Al Hydrox/Mg Hydrox/Simethicone (Aluminum/Magnesium Susp 30 Ml Udc) 30 ml PO Q6H PRN PRN Reason: Dyspepsia Stop: 12/29/20 15:54 Lactated Ringer's (Lr) 1,000 mls @ 180 mls/hr IV .Q5H34M BERTRAND Stop: 12/31/20 15:14 Last Admin: 12/03/20 04:00 Dose: 180 mls/hr Documented by: Magnesium Sulfate/Dextrose (Magnesium Sulfate / D5w) 1 gm in 100 mls @ 50 mls/hr IV ONE ONE Stop: 12/03/20 08:55 Ketorolac Tromethamine (Ketorolac Tromethamine 15 Mg/Ml Vial) 15 mg IV Q6H PRN PRN Reason: moderate pain Stop: 12/04/20 15:54 Last Admin: 12/02/20 11:15 Dose: 15 mg Documented by: Magnesium Hydroxide (Magnesium Hydroxide Susp 30 Ml Udc) 30 ml PO Q6H PRN PRN Reason: Constipation Stop: 12/29/20 15:54 Menthol (Cough Drop (Sugar Free) Lluvia 24 Lluvia/1 Box) 1 lluvia BUCCAL PRN PRN PRN Reason: Sore Throat Stop: 12/31/20 00:36 Last Admin: 12/01/20 05:52 Dose: 1 lluvia Documented by: Morphine Sulfate (Morphine Sulfate 2 Mg/Ml Carp) 2 mg IV Q2H PRN PRN Reason: Pain Stop: 12/14/20 15:31 Last Admin: 12/01/20 13:54 Dose: 2 mg Documented by: Morphine Sulfate (Morphine Sulfate 4 Mg/Ml 1 Ml Carp\Vial) 4 mg IV Q2H PRN PRN Reason: Pain Stop: 12/14/20 15:31 Last Admin: 12/01/20 17:22 Dose: 4 mg Documented by: Ondansetron HCl (Ondansetron Inj 2 Mg/Ml 2 Ml Vial) 4 mg IV Q6H PRN PRN Reason: Nausea Stop: 12/29/20 15:54 Last Admin: 12/02/20 11:15 Dose: 4 mg Documented by: Oxycodone HCl (Oxycodone Hcl Ir 5 Mg Tab (Immediate Release)) 5 mg PO Q4H PRN PRN Reason: Pain Stop: 12/14/20 15:31 Oxycodone HCl (Oxycodone Hcl Ir 5 Mg Tab (Immediate Release)) 10 mg PO Q4H PRN PRN Reason: Pain Stop: 12/14/20 15:31 Last Admin: 12/02/20 06:52 Dose: 10 mg Documented by: Polyethylene Glycol (Polyethylene (Miralax) 17 Gm Pack) 17 gm PO DAILY PRN PRN Reason: Constipation Stop: 12/29/20 15:54 Last Admin: 12/01/20 11:13 Dose: 17 gm Documented by: Potassium Chloride (Potassium Chloride Crtab 20 Meq Tabcr) 20 meq PO NOW STA Stop: 12/03/20 06:57
[2020-12-03] MEDS ORDERED: POTASSIUM CHLORIDE CRTAB 20 MEQ TABCR PO STA (07:10)
[2020-12-03] MEDS ORDERED: MAGNESIUM SULFATE / D5W 1 GM/100 ML BAG IV ONE (07:30)
--- NOTE | 2020-12-03 10:21 | Surgery Progress Note ---
Date of Service December 03, 2020 Assessment & Plan (1) Cholelithiasis: Postoperative day #3 status post laparoscopic cholecystectomy and ERCP Feels much better today Tolerated regular diet Surgical discomfort but no severe abdominal pain Passing flatus From a surgical standpoint is ready for discharge Discussed postoperative follow-up with Dr. Mancia Admission and Anticipated Discharge Date Admission Date: November 30, 2020 Subjective Postoperative day #3 status post laparoscopic cholecystectomy and ERCP. Feels well today. Has some mild abdominal discomfort but much better Tolerated regular diet this morning without nausea and increased pain Passing flatus but has not had bowel movement as yet Denies nausea and vomiting Physical Exam Gastrointestinal (Abdomen): Inspection/Auscultation: normal bowel sounds and + abdominal surgical incision (Clean, dry and intact); abdomen not distended Percussion/Palpation: + abdomen tender (Minimal upper abdominal) and abdomen soft Results & Data ([facility]) Vital Signs (Past 12 Hours) Vital Signs Temp Pulse Resp BP Pulse Ox 12/03/20 07:53 36.6 C 54 L 18 138/86 96 12/02/20 23:40 36.6 C 60 15 114/76 100 Laboratory Results 12/03/20 12/03/20 Range/Units 05:44 05:44 WBC 7.24 (4.8-10.8) K/uL RBC 3.74 L (4.2-5.4) M/uL Hgb 10.7 L (12.0-16.0) g/dL Hct 32.2 L (37-47) % MCV 86.1 (80-100) fL MCH 28.6 (25-34) pg MCHC 33.2 (32-36) g/dL RDW Std Deviation 43.8 (36.4-46.3) fL RDW Coeff of Onur 14.0 (11.5-14.5) % Plt Count 287 (130-400) K/uL MPV 10.2 (7.4-10.4) fL Sodium 141 (136-145) mmol/L Potassium 3.7 (3.5-5.1) mmol/L Chloride 110 H (98-107) mmol/L Carbon Dioxide 25 (21-32) mmol/L Anion Gap 6.0 (3-11) BUN 6 L D (7-18) mg/dl Creatinine 0.59 L (0.6-1.2) mg/dl Est Cr Clr Drug Dosing 159.6 ml/min Est GFR ( Amer) 127.4 ml/min Est GFR (Non-Af Amer) 109.9 ml/min BUN/Creatinine Ratio 10.6 (10-20) Glucose 86 (70-99) mg/dl Calcium 7.9 L (8.5-10.1) mg/dl Phosphorus 3.6 (2.5-4.9) mg/dl Magnesium 1.7 L (1.8-2.4) mg/dl Total Bilirubin 1.0 (0.2-1) mg/dl AST 14 L (15-37) U/L ALT 50 (12-78) U/L Alkaline Phosphatase 63 (45-117) U/L Total Protein 5.8 L (6.4-8.2) gm/dl Albumin 2.7 L (3.4-5.0) gm/dl Globulin 3.1 (2.5-4.0) gm/dl Albumin/Globulin Ratio 0.9 (0.9-2) Lipase 296 (73-393) U/L
--- NOTE | 2020-12-03 18:12 | Discharge Summary ---
Date of Service December 03, 2020 Admission HPI Per Admitting Provider This is a 44-year-old female with past medical history of psoriasis but otherwise healthy who presents ED secondary to abdominal pain 8:33 a.m. She has had 7 episodes of similar pain in the last 3 months and 4 of which have been in the past month. Her last meal was last evening and she ate tofu marsala. Pain came on abruptly, located RUQ with radiation to R shoulder. When pain comes on it is intense, sharp, 10/10 and resolves on own. Nothing makes the pain better or worse except the IV diluadid in ED. She was recently in [place] from early October until last week and was seen in ED there and told she had gallstones. She saw PCP yesterday who referred her to general surgery. When pain came on abruptly today she presented right to ED. Her mother has hx of cholecystectomy at age 37. She has been trying to maintain a low fat diet. She has otherwise been well and fully vaccinated against covid-19. She denies f/c/s, dizziness, lightheaded, chest pain, sob, uri sx, emesis, diarrhea, constipation, dysuria, increased urg/freq with urination. Appetite has been decreased 2/2 to fear of abdominal pain returning. In ED pt remained hemodynamically stable. She did not meet SIRS/Sepsis criteria. RUQ U/S had a sonographically + murphys sign but no evidence of acute cystitis. Her CBD was noted to be dilated. She has mild gallbladder distention with cholelithiasis. She received IV toradol, dilaudid, zofran and IVF. She is currently feeling better in ED. Admission Exam Per Admitting Provider Constitutional: WD/WN, vitals as above, NAD, sitting up in bed, pleasant, conversing easily Head: Normocephalic, Atraumatic Eyes: PERRL, conjunctivae normal, anicteric sclerae ENMT: external ear and nose normal, oropharynx normal Neck: trachea midline, no thyromegaly normal visual inspection Respiratory: normal respiratory effort, lungs clear to auscultation, no wheeze, rales, rhonchi. Normal insp/exp effort, no accessory muscle use Cardiovascular: RRR, no murmur, no edema Vessels: no JVD or carotid bruit Chest: normal inspection of chest Abdomen: normal bowel sounds, soft, nontender, no hepatosplenomegaly Musculoskeletal: no cyanosis or clubbing, extremities motor strength 5/5 Skin: no rashes, warm and dry normal turgor Neurologic: PERRL, EOMI, accommodation nl, no face palsy, no dysarthria CN's II-XI intact bilaterally and moves all extremities Psychiatric: A+Ox3, euthymic affect Lymphatic: no cervical or axillary lymphadenopathy : deferred Principal Diagnosis Choledocholithiasis Acute cholecystitis Post ERCP pancreatitis Discharge Exam Constitutional: WD/WN, vitals as above, NAD Head: Normocephalic, Atraumatic Eyes: PERRL, conjunctivae normal, anicteric sclerae ENMT: external ear and nose normal, oropharynx normal Neck: normal visual inspection Respiratory: normal respiratory effort, lungs clear to auscultation, no wheeze, rales, rhonchi. Normal insp/exp effort, no accessory muscle use Cardiovascular: RRR, no murmur, no edema Vessels: no JVD or carotid bruit Chest: normal inspection of chest Abdomen: normal bowel sounds, soft, mildly tender to palp. at RUQ Musculoskeletal: extremities motor strength 5/5 Skin: no rashes, warm and dry normal turgor Neurologic: PERRL, EOMI, no face palsy, no dysarthria CN's II-XI intact bilaterally and moves all extremities Psychiatric: A+Ox3, euthymic affect Discharge Data Allergies Allergy/AdvReac Type Severity Reaction Status Date / Time fentanyl Allergy Severe ANAPHYLAXIS Verified 11/29/20 13:32 Aminoglycosides Allergy Unknown Y Verified 11/29/20 13:32 bacitracin Allergy Unknown Verified 11/29/20 13:32 lidocaine Allergy Unknown Y Verified 11/29/20 13:32 neomycin Allergy Unknown Y Verified 11/29/20 13:32 polymyxin B Allergy Unknown Y Verified 11/29/20 13:32 Consultations 11/29/20 12:30 ED Decision to Admit Stat 11/29/20 12:59 Consult General Surgery Routine 11/29/20 13:35 Consult Gastroenterology Routine Procedures Performed Operation Date: 11/30/20 08:25 Actual Procedures p Endoscopic Retrograde Cholangiopancreatogram(Not Applicable) - Ramon Blackwell MD s Endoscopic Ultrasonography(Not Applicable) - Ramon Blackwell MD s Laparoscopic Cholecystectomy(Not Applicable) - Phillip Mancia, DO Ordered Studies 11/29/20 10:35 US gallbladder Stat IMPRESSION: 1. Mild gallbladder distention with cholelithiasis. The sonographic Ferguson sign was reported as positive, however no gallbladder wall thickening or pericholecystic fluid identified to suggest acute cholecystitis. 2. Dilation of the common bile duct. Correlate with serum bilirubin to exclude obstructive etiology. 11/30/20 10:30 US upper EUS PACS images Routine 11/30/20 11:00 FL ERCP biliary ductal Routine Hospital Course (1) Cholelithiasis: (2) Biliary colic: (3) Leukocytosis: Choledocholithiasis Acute cholecystitis Post ERCP pancreatitis LFTS: Ast 46, ALT 51, Alp Phos 86, T bili 1.4, direct 0.4 Gallbladder ultrasound IMPRESSION: 1. Mild gallbladder distention with cholelithiasis. The sonographic Ferguson sign was reported as positive, however no gallbladder wall thickening or pericholecystic fluid identified to suggest acute cholecystitis. 2. Dilation of the common bile duct. Correlate with serum bilirubin to exclude obstructive etiology. admitted to med/surg Consulted general surgery and GI - now s/p ERCP / EUS (11/30), followed by laparoscopic cholecystectomy Tolerated procedure well initially However developed abdominal pain that got worse throughout the day on (12/01), 10 out of 10 lipase ordered by surgical service, elevated at 1900 Started patient on IVF LR, diet only to clear liquids Lipase down to 1200 Continue IV fluids, n.p.o./clear liquids, as tolerated, pain control Ok to dc IV zosyn 12/03/20 - Patient is currently feeling much better, abdominal pain mostly resolved. Tolerated regular food (low fat) Lipase is down to normal limit. Dispo: Plan to DC home PCP: Dr. Trujillo Total Time Total Time Spent Total Time Spent (In Minutes): 35 Total Time Includes: Examination of the Patient, Discharge Planning, Medication Reconciliation and Communication With Other Providers Discharge Plan Discharge Items Patient Disposition: Home - Self-Care Reason For Visit: abdominal pain; biliary colic Discharge Diagnosis: Choledocholithiasis Acute cholecystitis Post ERCP pancreatitis Activity: Per Instructions section Lifting: No more than 10 pounds Bathing Comment: may shower; no soaking in tubs/pools Non-emergency contact: Primary Care Provider and Surgeon Call non-emergency contact if: you have any medication questions, your symptoms worsen, your pain is not controlled, your pain is worsening, your pain is concerning for you, you have a fever, your temperature is above 101.5, your wound has increased redness, your wound has increased drainage and your wound pain has increased Follow-up/Referrals: Phillip Mancia DO [Physician] - (Please call to schedule follow up in clinic within 1-2 weeks) Ladarius Trujillo DO [Primary Care Provider] - (Date & Time 12/06/2020 3:00 PM Provider Ladarius Trujillo DO Department General Internal Medicine [facility] ) Diet: Low Fiber and Low Fat Addtl Attending Provider Instructions: You have small white bandages over your incisions called steri-strips in place. You may keep these on and shower. They will tend to fall off on their own within 7-10 days You may use Tylenol and/or Ibuprofen over the counter if needed for additional pain control. For more severe pain, you can use oxycodone, which was already sent to your pharmacy as well. Pending Studies at Discharge: Yes Studies:: surgical pathology Stand-Alone Forms: My [facility], Smoking Cessation Medications and DC Order Prescriptions: New oxycodone 5 mg tablet 5 - 10 mg PO .[id number] PRN (Reason: pain, for initial therapy, max 6 tabs per day) Qty: 12 RF: 0 Continued fluocinonide 0.05 % solution 0.05 ml TOPICAL DAILY PRN (Reason: Rash) RF: 0 Discharge Orders: Discharge Order (Routine); Ordered 12/03/20 Ordered By: Edu Baca Admission Data Admit Date/Time: 11/30/20 07:24 Attending Provider: Edu Baca Admit Provider: Jennifer Mckeon Primary Care Provider: Ladarius Trujillo Other Providers: Jennifer Mckeon ; Phillip Mancia ; Ramon Blackwell
== END 2020-12-03 18:42 | disposition home or self-care (01) | DRG 417 ==
LOC: ED 10:22 → 3W 10:22 → SUATTDRO 12:59 → 3W 16:08